=== PATIENT | female | born 1950 | race Caucasian/White ===

== ENCOUNTER 2018-06-12 17:11 | Inpatient (IN) ==
[2018-06-12] MEDS ORDERED: 0.9 % Sodium Chloride 1,000 ML IVC ONE (17:33)
--- NOTE | 2018-06-12 18:02 | Emergency Department Note ---
Disposition Clinical Impression: Syncope and collapse, Abdominal pain, Constipation Disposition: Still a Patient Condition: Fair Instructions: Constipation (ED) Referrals: Leonel Esparza MD [Primary Care Provider] - Forms: ED Satisfaction Letter, Work/School Release Time of Disposition: 19:11 Abdominal Pain HPI - General Chief Complaint: ED Abdominal Pain Stated Complaint: abd pain,syncopal episodes Time Seen by Provider: 06/12/18 17:13 Source: patient Limitations: no limitations Nursing Notes Reviewed: Yes Vital Signs Reviewed: Yes - History of Present Illness HPI Narrative: Gladis is a 67 year old female with a PMH significant for HTN, DL, diverticular disease who presents with 5 days of constipation with associated falls. History comes primarily from the patient. Gladis states she had a very large, blood streaked bowel movement Wednesday evening, and has not had a bowel movement since then. In the interval period she has attempted to treat with mirilax and liberal po hydration with no effect. She had several paroxysmal episodes of subjective fever and associated chills/night sweats, and she developed progressively worsening abdominal cramping after 24 hours without a bowel movement. On Wednesday, stood up and attempted to ambulate to the restroom, but fell to the ground and struck her head against the ground, briefly losing consciousness. This happened twice more that same evening, though she is unsure if she lost consciousness all three times. Through this her constipation persisted, and when it did not resolve on Wednesday she presented to [facility] for further evaluation and treatment. She admits to subjective fever and chills, but denies N/V, CP/SOB. Of note she was assessed in April of this year at this same location for a fall, and work up at that time was negative for intracranial process or inciting etiology. Pt Subjective Complaint: abdominal pain Consistency: constant Location: diffuse Pain Scale: 10 Quality: cramping Improves with: nothing Worsens with: nothing (d) Associated symptoms: Reports: constipation Treatments prior to arrival: OTC medications (Miralax) - Related Data Home Medications Medication Instructions Recorded Confirmed Aspirin Enteric Coated [Aspirin EC] 2 tab PO DAILY 04/29/15 04/20/16 Ezetimibe [Zetia] 10 mg PO DAILY 04/29/15 04/20/16 Omeprazole [PriLOSEC] 20 mg PO BIDAC 04/29/15 04/20/16 Venlafaxine XR (24 HR) [Effexor XR] 150 mg PO BID 04/29/15 04/20/16 diazePAM [Valium] 5 mg PO BID 10/29/15 04/20/16 Albuterol Sulfate [Albuterol 2 puff IH Q4H PRN 04/20/16 04/20/16 Inhaler] Atorvastatin Calcium [Lipitor] 20 mg PO DAILY 04/20/16 04/20/16 Cetirizine HCl [Zyrtec] 10 mg PO DAILY 04/20/16 04/20/16 Ergocalciferol (VITAMIN D2) 50,000 unit PO QWEEK 04/20/16 04/20/16 [Vitamin D2 (50,000 UNIT)] Ferrous Gluconate 324 mg PO BID 04/20/16 04/20/16 Montelukast [Singulair] 10 mg PO DAILY 04/20/16 04/20/16 Ranitidine HCl [Heartburn Relief] 150 mg PO BID 04/20/16 04/20/16 Previous Rx's Medication Instructions Recorded Ciprofloxacin [Cipro] 500 mg PO BID #8 tablet 04/24/16 metroNIDAZOLE [Flagyl] 500 mg PO TID #12 tablet 04/24/16 Allergies Allergy/AdvReac Type Severity Reaction Status Date / Time Penicillins Allergy Unknown Hives Verified 04/20/17 20:33 Constitutional: Reports: fever, chills, weakness ENT ED: Reports: as per HPI. Denies: congestion, dysphagia Cardiovascular: Denies: chest pain, palpitations Respiratory: Reports: as per HPI. Denies: cough, dyspnea, wheezes, sputum production Gastrointestinal: Reports: abdominal pain, constipation. Denies: nausea, vomit ing Genitourinary: Denies: urgency, dysuria, frequency Musculoskeletal: Reports: arthralgia (chronic arthritic change and carpal tunnel at baseline) Integumentary: Denies: abrasion Neurological: Reports: weakness Psychiatric: Denies: anxiety, depression Endocrine: Reports: fatigue Abdominal Pain PMH - Past Medical History Medical history: Reports: hyperlipidemia, hypertension, other Female Surgical History: Reports: hysterectomy TUBE ROLLER history: Reports: no TUBE ROLLER history Psychiatric history: Reports: no psych history - Social History Smoking status: Current every day smoker Alcohol use: Reports: none Drug use: Reports: none Physical Exam - General Limitations: no limitations General appearance: alert, in no apparent distress - Head Head exam: atraumatic, normocephalic, normal inspection - Eye Eye exam: Present: normal appearance, PERRL, EOMI - ENT ENT exam: mucous membranes dry - Neck Neck exam: Present: normal inspection, full ROM, trachea midline - Chest Chest inspection: Present: normal inspection, symmetric chest wall rise - Respiratory Respiratory exam: Present: normal lung sounds bilaterally. Absent: respiratory distress, wheezes, accessory muscle use - Cardiovascular Cardiovascular exam: Present: irregular rhythm (Patient is in an irregular coupled sinus rhythm on EKG, with two separate fixed but alternating R-R intervals), normal heart sounds. Absent: systolic murmur, rubs, gallop - Abdominal Exam Abdominal exam: Present: soft, tenderness, diminished bowel sounds. Absent: rebound, rigidity - Rectal Exam Reception Agent present during exam: Yes (Claudia) Rectal exam: Present: normal rectal tone. Absent: bloody stool, fecal impaction, hemorrhoids, mass - Extremities Exam Extremities exam: Present: normal inspection - Expanded Lower Extremity Exam Foot/toe exam: Present: normal inspection Neurovascular/Tendon exam: Present: normal capillary refill - Neurological Exam Neurological exam: Present: alert, oriented X3, CN II-XII intact - Psychiatric Psychiatric exam: Present: normal affect, normal mood - Skin Skin exam: Present: warm, dry, intact, normal color Course Course Narrative: Initial concerns include: Intracranial pathology 2/2 recent fall and head trauma. arrhythmia induced syncope 2/2 new onset regularly irregular rhythm Diverticulitis with associated constipation Hgb decrease from 12.4-11 since last eval Will obtain initial laboratory studies including CBC/CMP/Troponin Will obtain CT of head and abdomen Hemoccult performed and sent to lab Vital Signs Temperature 98.5 F 06/12/18 17:16 Pulse Rate 98 06/12/18 17:16 Respiratory Rate 15 06/12/18 17:16 Blood Pressure 121/75 06/12/18 17:16 O2 Sat by Pulse Oximetry 96 06/12/18 17:16 Temperature 98.5 F 06/12/18 17:25 Pulse Rate 98 06/12/18 17:25 Respiratory Rate 15 06/12/18 17:25 Blood Pressure 121/75 06/12/18 17:25 O2 Sat by Pulse Oximetry 96 06/12/18 17:25 Oxygen Delivery Oxygen Delivery Room Air Abdominal Pain - Lab Data Result diagrams: 06/12/18 17:33 06/12/18 17:33 Lab Results 06/12/18 06/12/18 06/12/18 Range/Units 17:33 17:33 17:33 WBC 8.6 (4.3-11.1) K/mcL RBC 3.86 (3.82-4.97) M/mcL Hgb 11.0 L (11.5-15.4) g/dL Hct 33.6 L (35.3-44.9) % MCV 87.0 (83.0-100.0) fL MCH 28.5 (28.0-33.3) pg MCHC 32.7 (31.6-35.5) g/dL RDW 15.2 H (11.5-14.5) % Plt Count 285 (140-400) K/mcL MPV 8.6 L (9.4-12.4) fL Immature Gran % 0.3 (0-4) % Seg Neutrophils % 75.1 % Lymphocytes % 18.1 % Monocytes % 6.2 % Eosinophils % 0.1 % Basophils % 0.2 % Neutrophils # 6.5 (1.6-8.9) K/mcL Lymphocytes # 1.6 (0.6-4.6) K/mcL Monocytes # 0.5 (0.0-1.3) K/mcL Eosinophils # 0.0 (0.0-0.6) K/mcL Basophils # 0.0 (0.0-0.2) K/mcL PT 11.3 (9.4-12.1) Seconds INR 1.0 APTT 25.8 L (26.0-36.0) Seconds Sodium 135 L (136-145) mEq/L Potassium 3.9 (3.5-5.1) mEq/L Chloride 103 (98-107) mEq/L Carbon Dioxide 24 (23-29) mEq/L BUN 11 (8-23) mg/dL Creatinine 0.80 (0.60-1.20) mg/dL Est GFR ( Amer) > 60 (> 60) Est GFR (Non-Af Amer) > 60 (> 60) BUN/Creatinine Ratio 14 (6-26) Glucose 92 (70-105) mg/dL Calculated Osmolality 279 L (280-300) Calcium 9.5 (8.6-10.3) mg/dL Total Bilirubin 0.3 (0.3-1.0) mg/dL Direct Bilirubin 0.0 (0.0-0.2) mg/dL Indirect Bilirubin 0.3 (0.0-1.2) mg/dL AST 14 (13-39) Units/L ALT 11 (7-52) Units/L Alkaline Phosphatase 66 (34-104) Units/L Troponin I < 0.03 (< 0.04) ng/mL Serum Total Protein 7.3 (6.4-8.9) g/dL Albumin 3.9 (3.5-5.7) g/dL Globulin 3.4 (2.4-3.5) g/dL Albumin/Globulin Ratio 1.1 (1.1-2.2) Lipase 9 L (11-82) Units/L Stool Occult Bld Scrn (Negative) 06/12/18 Range/Units 18:19 WBC (4.3-11.1) K/mcL RBC (3.82-4.97) M/mcL Hgb (11.5-15.4) g/dL Hct (35.3-44.9) % MCV (83.0-100.0) fL MCH (28.0-33.3) pg MCHC (31.6-35.5) g/dL RDW (11.5-14.5) % Plt Count (140-400) K/mcL MPV (9.4-12.4) fL Immature Gran % (0-4) % Seg Neutrophils % % Lymphocytes % % Monocytes % % Eosinophils % % Basophils % % Neutrophils # (1.6-8.9) K/mcL Lymphocytes # (0.6-4.6) K/mcL Monocytes # (0.0-1.3) K/mcL Eosinophils # (0.0-0.6) K/mcL Basophils # (0.0-0.2) K/mcL PT (9.4-12.1) Seconds INR APTT (26.0-36.0) Seconds Sodium (136-145) mEq/L Potassium (3.5-5.1) mEq/L Chloride (98-107) mEq/L Carbon Dioxide (23-29) mEq/L BUN (8-23) mg/dL Creatinine (0.60-1.20) mg/dL Est GFR ( Amer) (> 60) Est GFR (Non-Af Amer) (> 60) BUN/Creatinine Ratio (6-26) Glucose (70-105) mg/dL Calculated Osmolality (280-300) Calcium (8.6-10.3) mg/dL Total Bilirubin (0.3-1.0) mg/dL Direct Bilirubin (0.0-0.2) mg/dL Indirect Bilirubin (0.0-1.2) mg/dL AST (13-39) Units/L ALT (7-52) Units/L Alkaline Phosphatase (34-104) Units/L Troponin I (< 0.04) ng/mL Serum Total Protein (6.4-8.9) g/dL Albumin (3.5-5.7) g/dL Globulin (2.4-3.5) g/dL Albumin/Globulin Ratio (1.1-2.2) Lipase (11-82) Units/L Stool Occult Bld Scrn Negative (Negative) S.B.A.R. - S.B.A.R. Transition of Care: Change of Shift Situation: Demographics, MOA Background: Presenting Complaint, Relevant PMH, Meds, & Allergies Assessment: Vital Signs, Course and respsone to treatment, Exam Concerns, Pertinant Lab Results, Outstanding Labs Recommendation: Barrier(s) to disposition, Recommendation based on pending s tudies, treatments, or consults S.B.A.R. Report Given to: Can Alvarado D.O. S.B.A.R. Repor Time: 19:00 Attestation Statement - Attestation Attestation: I, Cristopher Olson DO, examined this patient [id number] and my medical decision-making was reviewed with Davi Guerin PGY-1( rotating internal salesperson), Resident Physician. I agree with the documented findings, disposition and tr eatment plan as described except to the extent set forth below. Please see my progress notes for details.
[2018-06-12 18:04] LABS: Basophils % 0.2 %; Eosinophils % 0.1 %; Hematocrit 33.6 % (35.3-44.9); Immature Granulocytes % 0.3 % (0-4); Lymphocytes # 1.6 K/mcL (0.6-4.6); Lymphocytes % 18.1 %; Mean Corpuscular HGB Conc 32.7 g/dL (31.6-35.5); Mean Corpuscular Hemoglobin 28.5 pg (28.0-33.3); Mean Platelet Volume 8.6 fL (9.4-12.4); Monocytes # 0.5 K/mcL (0.0-1.3); Monocytes % 6.2 %; Neutrophils # 6.5 K/mcL (1.6-8.9); Platelet Count 285 K/mcL (140-400); Red Blood Count 3.86 M/mcL (3.82-4.97); Red Cell Distribution Width 15.2 % (11.5-14.5); Segmented Neutrophils % 75.1 %
[2018-06-12 18:11] LABS: Prothrombin Time 11.3 Seconds (9.4-12.1)
[2018-06-12 18:15] LABS: Activated Partial Thrombo Time 25.8 Seconds (26.0-36.0)
--- NOTE | 2018-06-12 18:18 | Emergency Department Note ---
Disposition Clinical Impression: Syncope and collapse, Abdominal pain Disposition: Still a Patient Condition: Fair Referrals: Leonel Esparza MD [Primary Care Provider] - Forms: ED Satisfaction Letter, Work/School Release Time of Disposition: 18:28 General Adult HPI - General Chief complaint: ED Abdominal Pain Stated complaint: abd pain,syncopal episodes Time Seen by Provider: 06/12/18 17:13 Source: patient Limitations: no limitations - History of Present Illness Pain Scale: 10 - Related Data Home Medications Medication Instructions Recorded Confirmed Aspirin Enteric Coated [Aspirin EC] 2 tab PO DAILY 04/29/15 04/20/16 Ezetimibe [Zetia] 10 mg PO DAILY 04/29/15 04/20/16 Omeprazole [PriLOSEC] 20 mg PO BIDAC 04/29/15 04/20/16 Venlafaxine XR (24 HR) [Effexor XR] 150 mg PO BID 04/29/15 04/20/16 diazePAM [Valium] 5 mg PO BID 10/29/15 04/20/16 Albuterol Sulfate [Albuterol 2 puff IH Q4H PRN 04/20/16 04/20/16 Inhaler] Atorvastatin Calcium [Lipitor] 20 mg PO DAILY 04/20/16 04/20/16 Cetirizine HCl [Zyrtec] 10 mg PO DAILY 04/20/16 04/20/16 Ergocalciferol (VITAMIN D2) 50,000 unit PO QWEEK 04/20/16 04/20/16 [Vitamin D2 (50,000 UNIT)] Ferrous Gluconate 324 mg PO BID 04/20/16 04/20/16 Montelukast [Singulair] 10 mg PO DAILY 04/20/16 04/20/16 Ranitidine HCl [Heartburn Relief] 150 mg PO BID 04/20/16 04/20/16 Previous Rx's Medication Instructions Recorded Ciprofloxacin [Cipro] 500 mg PO BID #8 tablet 04/24/16 metroNIDAZOLE [Flagyl] 500 mg PO TID #12 tablet 04/24/16 Allergies Allergy/AdvReac Type Severity Reaction Status Date / Time Penicillins Allergy Unknown Hives Verified 04/20/17 20:33 Constitutional: Reports: fever, chills, weakness ENT ED: Reports: as per HPI. Denies: congestion, dysphagia Cardiovascular: Denies: chest pain, palpitations Respiratory: Reports: as per HPI. Denies: cough, dyspnea, wheezes, sputum production Gastrointestinal: Reports: abdominal pain, constipation. Denies: nausea, vomiting Genitourinary: Denies: urgency, dysuria, frequency Musculoskeletal: Reports: arthralgia (chronic arthritic change and carpal tunnel at baseline) Integumentary: Denies: abrasion Past Medical History - Past Medical History Medical history: Reports: hyperlipidemia, hypertension, other Surgical history: Reports: hysterectomy Psychiatric history: Reports: no psych history CHIP TESTER history: Reports: no CHIP TESTER history - Social History Smoking Status: Current every day smoker Smokeless Tobacco Status: No Alcohol use: Reports: none Drug use: Reports: none Physical Exam - General Limitations: no limitations General appearance: alert, in no apparent distress Course Vital Signs Temperature 98.5 F 06/12/18 17:16 Pulse Rate 98 06/12/18 17:16 Respiratory Rate 15 06/12/18 17:16 Blood Pressure 121/75 06/12/18 17:16 O2 Sat by Pulse Oximetry 96 06/12/18 17:16 Temperature 98.5 F 06/12/18 17:25 Pulse Rate 98 06/12/18 17:25 Respiratory Rate 15 06/12/18 17:25 Blood Pressure 121/75 06/12/18 17:25 O2 Sat by Pulse Oximetry 96 06/12/18 17:25 Oxygen Delivery Oxygen Delivery Room Air Medical Decision Making - Lab Data Result diagrams: 06/12/18 17:33 Lab Results 06/12/18 06/12/18 Range/Units 17:33 17:33 WBC 8.6 (4.3-11.1) K/mcL RBC 3.86 (3.82-4.97) M/mcL Hgb 11.0 L (11.5-15.4) g/dL Hct 33.6 L (35.3-44.9) % MCV 87.0 (83.0-100.0) fL MCH 28.5 (28.0-33.3) pg MCHC 32.7 (31.6-35.5) g/dL RDW 15.2 H (11.5-14.5) % Plt Count 285 (140-400) K/mcL MPV 8.6 L (9.4-12.4) fL Immature Gran % 0.3 (0-4) % Seg Neutrophils % 75.1 % Lymphocytes % 18.1 % Monocytes % 6.2 % Eosinophils % 0.1 % Basophils % 0.2 % Neutrophils # 6.5 (1.6-8.9) K/mcL Lymphocytes # 1.6 (0.6-4.6) K/mcL Monocytes # 0.5 (0.0-1.3) K/mcL Eosinophils # 0.0 (0.0-0.6) K/mcL Basophils # 0.0 (0.0-0.2) K/mcL PT 11.3 (9.4-12.1) Seconds INR 1.0 APTT 25.8 L (26.0-36.0) Seconds Attestation Statement - Attestation Attestation: I, Cristopher Olson DO, examined this patient [id number] and my medical decision-making was reviewed with Davi Guerin PGY-1( rotating kinesiology internship), Resident Physician. I agree with the documented findings, disposition and olga atment plan as described except to the extent set forth below. Please see my progress notes for details. 67-year-old female presents to the emergency room with several complaints. She describes 3 falls yesterday of unknown etiology. One of her falls and with a syncopal event that she does not recall. She did hit her head at that time and her face. She denies any active chest pain, shortness of breath. Denies any nausea vomiting or diarrhea. Denies any fevers or chills. Patient has a h istory of diverticular disease. She has been constipated for approximately for 5 days. When she did fall yesterday she did have a large bowel movement and that is been the only bowel movements she has had not timeframe. Vital signs on initial presentation are stable. Patient is alert she is oriented she speaks in full sentences. She has no visible signs of facial asymmetry or neurologic deficits. Patient did ambulate into the emergency department under her own power. Head is atraumatic. Pupils are equal round reactive. Extraocular muscles are intact. Oral mucosa is patent. Lungs are clear. Heart is regular. Abdomen is soft nontender nondistended with no guarding no rigidity and no peritoneal symptoms at this time. Patient denies any vaginal discharge or burning with urination. No signs of skin rashes lesions or trauma at this point. EKG was collected in the triage process and does show a sinus arrhythmia. She has 2 beats the couple together and a normal distribution co nsistent with either a bigeminy are coupled atrial rhythm. Patient's ventricular rate is in the 80s. Patient will have detailed workup completed here today for syncope. CT imaging of the head and cervical spine along with CT imaging of the abdomen will be ordered and resulted at this point. CBC chemistry liver function testing and lipase along with urinalysis and troponin will be collected as well. Patient will most likely require admission secondary to the syncopal event that was unprovoked. See detailed documentation of the physical exam, medical intervention, medical decision-making and disposition in the resident physician's note. No critical care applied to the patient's treatment course at this time. 1900 Patient's workup is still pending at this time. Detailed sign out will be completed to the overnight providers Dr. Alvarado. No other issues at this point. Recommendation for consultation with Dr. Prakash Padron will be given as well. Patient may require admission for syncopal event. Patient is otherwise clinically stable.
[2018-06-12 18:26] LABS: BUN/Creatinine Ratio 14 (6-26); Blood Urea Nitrogen 11 mg/dL (8-23); Calcium 9.5 mg/dL (8.6-10.3); Carbon Dioxide 24 mEq/L (23-29); Chloride 103 mEq/L (98-107); Glucose 92 mg/dL (70-105); Osmolality,Calculated 279 (280-300); Potassium 3.9 mEq/L (3.5-5.1); Sodium 135 mEq/L (136-145); Troponin I < 0.03 ng/mL (< 0.04); eGFR For Non-African Americans > 60 (> 60)
[2018-06-12 18:36] LABS: Alanine Aminotransferase 11 Units/L (7-52); Albumin 3.9 g/dL (3.5-5.7); Albumin/Globulin Ratio 1.1 (1.1-2.2); Alkaline Phosphatase 66 Units/L (34-104); Aspartate Amino Transferase 14 Units/L (13-39); Bilirubin,Indirect 0.3 mg/dL (0.0-1.2); Bilirubin,Total 0.3 mg/dL (0.3-1.0); Globulin 3.4 g/dL (2.4-3.5); Lipase 9 Units/L (11-82); Total Protein 7.3 g/dL (6.4-8.9)
[2018-06-12 18:57] LABS: Bilirubin,Urine Negative (Negative); Blood,Urine Small (Negative); Clarity,Urine Clear (Clear); Color,Urine Yellow (Yellow); Glucose,Urine (UA) Normal (Normal); Ketones,Urine Negative (Negative); Leukocyte Esterase,Urine Negative (Negative); Nitrite,Urine Negative (Negative); PH,Urine 6.5 pH Units (5.0-8.0); Protein,Urine Negative (Neg-Trace); Specific Gravity,Urine 1.009 (1.010-1.025); Urobilinogen,Urine Normal (Normal)
[2018-06-12 18:59] LABS: Bacteria,Urine None Seen per hpf (None-Few); Hyaline Casts,Urine None Seen per lpf (None-Few); Squamous Epithelial Cell,Urine Moderate per lpf (None-Few); WBC,Urine 0-3 per hpf (0-3)
--- NOTE | 2018-06-12 19:32 | Emergency Department Note ---
Addendum entered and electronically signed by Job Ellis DO 06/12/18 21:03: Dr. Hernandez spoke with patient, has requested that surgical consult be cancelled at this time. Original Note: Disposition Clinical Impression: Syncope and collapse, Abnormal EKG, Diverticulitis Abdominal pain Qualifiers: Abdominal location: unspecified location Qualified Code(s): R10.9 - Unspecified abdominal pain Constipation Qualifiers: Constipation type: unspecified constipation type Qualified Code(s): K59.00 - Constipation, unspecified Disposition: Admitted As Inpatient Condition: Good Time of Disposition: 20:08 Abdominal Pain HPI - General Chief Complaint: ED Abdominal Pain Stated Complaint: abd pain,syncopal episodes Time Seen by Provider: 06/12/18 17:13 Source: patient Mode of arrival: ambulatory Limitations: no limitations Nursing Notes Reviewed: Yes Vital Signs Reviewed: Yes - History of Present Illness Pt Subjective Complaint: abdominal pain Location: diffuse Pain Scale: 10 Quality: cramping Improves with: nothing Worsens with: nothing (d) Associated symptoms: Reports: constipation - Related Data Home Medications Medication Instructions Recorded Confirmed RX: Aspirin Enteric Coated 2 tab PO DAILY 04/29/15 04/20/16 [Aspirin EC] RX: Ezetimibe [Zetia] 10 mg PO DAILY 04/29/15 04/20/16 RX: Omeprazole [PriLOSEC] 20 mg PO BIDAC 04/29/15 04/20/16 RX: Venlafaxine XR (24 HR) 150 mg PO BID 04/29/15 04/20/16 [Effexor XR] RX: diazePAM [Valium] 5 mg PO BID 10/29/15 04/20/16 RX: Albuterol Sulfate [Albuterol 2 puff IH Q4H PRN 04/20/16 04/20/16 Inhaler] RX: Atorvastatin Calcium [Lipitor] 20 mg PO DAILY 04/20/16 04/20/16 RX: Cetirizine HCl [Zyrtec] 10 mg PO DAILY 04/20/16 04/20/16 RX: Ergocalciferol (VITAMIN D2) 50,000 unit PO QWEEK 04/20/16 04/20/16 [Vitamin D2 (50,000 UNIT)] RX: Ferrous Gluconate 324 mg PO BID 04/20/16 04/20/16 RX: Montelukast [Singulair] 10 mg PO DAILY 04/20/16 04/20/16 RX: Ranitidine HCl [Heartburn 150 mg PO BID 04/20/16 04/20/16 Relief] Previous Rx's Medication Instructions Recorded RX: Ciprofloxacin [Cipro] 500 mg PO BID #8 tablet 04/24/16 RX: metroNIDAZOLE [Flagyl] 500 mg PO TID #12 tablet 04/24/16 Allergies Allergy/AdvReac Type Severity Reaction Status Date / Time Penicillins Allergy Unknown Hives Verified 04/20/17 20:33 Constitutional: Reports: fever, chills, weakness ENT ED: Reports: as per HPI. Denies: congestion, dysphagia Cardiovascular: Denies: chest pain, palpitations Respiratory: Reports: as per HPI. Denies: cough, dyspnea, wheezes, sputum pr oduction Gastrointestinal: Reports: abdominal pain, constipation. Denies: nausea, vomiting Genitourinary: Denies: urgency, dysuria, frequency Musculoskeletal: Reports: arthralgia (chronic arthritic change and carpal tunnel at baseline) Integumentary: Denies: abrasion Neurological: Reports: weakness Psychiatric: Denies: anxiety, depression Endocrine: Reports: fatigue Abdominal Pain PMH - Past Medical History Medical history: Reports: hyperlipidemia, hypertension, other Female Surgical History: Reports: hysterectomy UPPER SHAPER history: Reports: no UPPER SHAPER history Psychiatric history: Reports: no psych history - Social History Smoking status: Current every day smoker Alcohol use: Reports: none Drug use: Reports: none Physical Exam - General Limitations: no limitations General appearance: alert, in no apparent distress - Head Head exam: atraumatic, normocephalic, normal inspection - Eye Eye exam: Present: normal appearance, PERRL, EOMI - ENT ENT exam: normal exam, normal oropharynx, mucous membranes moist - Neck Neck exam: Present: normal inspection, full ROM, trachea midline - Chest Chest inspection: Present: normal inspection, symmetric chest wall rise - Respiratory Respiratory exam: Present: normal lung sounds bilaterally - Cardiovascular Cardiovascular exam: Present: regular rate, normal rhythm, normal heart sounds - Abdominal Exam Abdominal exam: Present: soft, Non-Tender. Absent: tenderness, distention, guarding, rebound, rigidity - Extremities Exam Extremities exam: Present: normal inspection, full ROM. Absent: tenderness, ped al edema - Neurological Exam Neurological exam: Present: alert, oriented X3 - Psychiatric Psychiatric exam: Present: normal affect, normal mood - Skin Skin exam: Present: warm, dry, intact, normal color Course Course Narrative: Patient was a sign out from day team, Dr. Olson and Dr. Blake. Please see their notes for any additional details. In summary, patient is a 67-year-old female that presented to the ER with several complaints. She has had multiple falls, a couple syncopal events. Most recent fall was yesterday. Patient states that she had some point had a syncopal event that she cannot recall and hit her head and face. Denies any chest pain, shortness of breath, nausea, vomiting, fevers. She does admit to abdominal pain and constipation and says that she has not had a bowel movement for the past 5 days. EKG was performed by previous team and shows a regular rhythm, possibly bigeminy versus ectopic beat. Rate is in the 80s. Otherwise, no acute ST elevation or depression. CT of the head, neck, abdomen and pelvis are currently pending. Troponin negative. Mild anemia. No major electrolyte abnormality. Urine negative for UTI. 19:49 CT head and cervical spine negative for any acute abnormality. Chest x- ray negative for any acute abnormality. CT abdomen pelvis shows acute uncomplicated sigmoid colon diverticulitis. We will start the patient on Cipro and Flagyl. We will consult cardio due to concerning irregular EKG. We will plan on admission for further syncopal workup and diverticulitis at this time. 20:08 I spoke with cardiology. They reviewed EKG. Currently concern for sinus arrhythmia versus sinus exit block. They have agreed to be consult for the patient once she is admitted and plan to order an echo after admission. Consult to surgery was also placed for uncomplicated diverticulitis. We will proceed with admission. Patient happy and agreeable with this plan. Chest X-Ray 06/12/18 17:33 IMPRESSION: No acute findings in the chest. D/ / Nava Boyle MD / Nava Boyle MD Interpreting Provider: Nava Boyle MD Abdomen/Pelvis CT 06/12/18 17:57 IMPRESSION: 1. Acute uncomplicated sigmoid colon diverticulitis. 2. No acute posttraumatic abnormality in the abdomen or pelvis. 3. Status post hysterectomy. D/ / Stu Edmond MD / Stu Edmond MD Interpreting Provider: Stu Edmond MD Cervical Spine CT 06/12/18 17:57 IMPRESSION: No acute abnormality of the cervical spine. D/ / Stu Edmond MD / Stu Edmond MD Interpreting Provider: Stu Edmond MD Head CT 06/12/18 17:57 IMPRESSION: No acute intracranial abnormality. D/ / Stu Edmond MD / Stu Edmond MD Interpreting Provider: Stu Edmond MD Chest X-Ray 06/12/18 17:33 IMPRESSION: No acute findings in the chest. D/ / Nava Boyle MD / Nava Boyle MD Interpreting Provider: Nava Boyle MD Cervical Spine CT 06/12/18 17:57 IMPRESSION: No acute abnormality of the cervical spine. D/ / Stu Edmond MD / Stu Edmond MD Interpreting Provider: Stu Edmond MD Vital Signs Temperature 98.5 F 06/12/18 17:16 Pulse Rate 98 06/12/18 17:16 Respiratory Rate 15 06/12/18 17:16 Blood Pressure 121/75 06/12/18 17:16 O2 Sat by Pulse Oximetry 96 06/12/18 17:16 Temperature 98.5 F 06/12/18 17:25 Pulse Rate 81 06/12/18 20:05 Respiratory Rate 16 06/12/18 20:05 Blood Pressure 126/94 06/12/18 20:05 O2 Sat by Pulse Oximetry 100 06/12/18 20:05 Oxygen Delivery Oxygen Delivery Room Air Abdominal Pain - MDM Narrative Medical decision making narrative: Patient was a sign out from day team, Dr. Olson and Dr. Blaek. Please see their notes for any additional details. In summary, patient is a 67-year-old female that presented to the ER with several complaints. She has had multiple falls, a couple syncopal events. Most recent fall was yesterday. Patient states that she had some point had a syncopal event that she cannot recall and hit her head and face. Denies any chest pain, shortness of breath, nausea, vomiting, fevers. She does admit to abdominal pain and constipation and says that she has not had a bowel movement for the past 5 days. EKG was performed by previous team and shows a regular rhythm, possibly bigeminy versus ectopic beat. Rate is in the 80s. Otherwise, no acute ST elevation or depression. CT of the head, neck, abdomen and pelvis are currently pending. Troponin negative. Mild anemia. No major electrolyte abnormality. Urine negative for UTI. 19:49 CT head and cervical spine negative for any acute abnormality. Chest x- ray negative for any acute abnormality. CT abdomen pelvis shows acute uncomplicated sigmoid colon diverticulitis. We will start the patient on Cipro and Flagyl. We will consult cardio due to concerning irregular EKG. We will plan on admission for further syncopal workup and diverticulitis at this time. 20:08 I spoke with cardiology. They reviewed EKG. Currently concern for sinus arrhythmia versus sinus exit block. They have agreed to be consult for the patient once she is admitted and plan to order an echo after admission. Consult to surgery was also placed for uncomplicated diverticulitis. We will proceed with admission. Patient happy and agreeable with this plan. - Medical Records Medical records reviewed: Yes I reviewed the patient's medical records. - Lab Data Lab results reviewed: Yes I reviewed the patient's lab results. Result diagrams: 06/12/18 17:33 06/12/18 17:33 Lab Results 06/12/18 06/12/18 06/12/18 Range/Units 17:33 17:33 17:33 WBC 8.6 (4.3-11.1) K/mcL RBC 3.86 (3.82-4.97) M/mcL Hgb 11.0 L (11.5-15.4) g/dL Hct 33.6 L (35.3-44.9) % MCV 87.0 (83.0-100.0) fL MCH 28.5 (28.0-33.3) pg MCHC 32.7 (31.6-35.5) g/dL RDW 15.2 H (11.5-14.5) % Plt Count 285 (140-400) K/mcL MPV 8.6 L (9.4-12.4) fL Immature Gran % 0.3 (0-4) % Seg Neutrophils % 75.1 % Lymphocytes % 18.1 % Monocytes % 6.2 % Eosinophils % 0.1 % Basophils % 0.2 % Neutrophils # 6.5 (1.6-8.9) K/mcL Lymphocytes # 1.6 (0.6-4.6) K/mcL Monocytes # 0.5 (0.0-1.3) K/mcL Eosinophils # 0.0 (0.0-0.6) K/mcL Basophils # 0.0 (0.0-0.2) K/mcL PT 11.3 (9.4-12.1) Seconds INR 1.0 APTT 25.8 L (26.0-36.0) Seconds Sodium 135 L (136-145) mEq/L Potassium 3.9 (3.5-5.1) mEq/L Chloride 103 (98-107) mEq/L Carbon Dioxide 24 (23-29) mEq/L BUN 11 (8-23) mg/dL Creatinine 0.80 (0.60-1.20) mg/dL Est GFR ( Amer) > 60 (> 60) Est GFR (Non-Af Amer) > 60 (> 60) BUN/Creatinine Ratio 14 (6-26) Glucose 92 (70-105) mg/dL POC Glucose (70-99) mg/dL Calculated Osmolality 279 L (280-300) Calcium 9.5 (8.6-10.3) mg/dL Total Bilirubin 0.3 (0.3-1.0) mg/dL Direct Bilirubin 0.0 (0.0-0.2) mg/dL Indirect Bilirubin 0.3 (0.0-1.2) mg/dL AST 14 (13-39) Units/L ALT 11 (7-52) Units/L Alkaline Phosphatase 66 (34-104) Units/L Troponin I < 0.03 (< 0.04) ng/mL Serum Total Protein 7.3 (6.4-8.9) g/dL Albumin 3.9 (3.5-5.7) g/dL Globulin 3.4 (2.4-3.5) g/dL Albumin/Globulin Ratio 1.1 (1.1-2.2) Lipase 9 L (11-82) Units/L Urine Color (Yellow) Urine Clarity (Clear) Urine pH (5.0-8.0) pH Units Ur Specific [place] (1.010-1.025) Urine Protein (Neg-Trace) mg/dL Urine Glucose (UA) (Normal) mg/dL Urine Ketones (Negative) mg/dL Urine Blood (Negative) Urine Nitrite (Negative) Urine Bilirubin (Negative) Urine Urobilinogen (Normal) mg/dL Ur Leukocyte Esterase (Negative) Urine Microscopic RBC (0-3) per hpf Urine Microscopic WBC (0-3) per hpf Ur Squamous Epith Cells (None-Few) per lpf Urine Bacteria (None-Few) per hpf Hyaline Casts (None-Few) per lpf Ur Culture Indicated? (NO) Stool Occult Bld Scrn (Negative) 06/12/18 06/12/18 06/12/18 Range/Units 17:43 18:19 18:43 WBC (4.3-11.1) K/mcL RBC (3.82-4.97) M/mcL Hgb (11.5-15.4) g/dL Hct (35.3-44.9) % MCV (83.0-100.0) fL MCH (28.0-33.3) pg MCHC (31.6-35.5) g/dL RDW (11.5-14.5) % Plt Count (140-400) K/mcL MPV (9.4-12.4) fL Immature Gran % (0-4) % Seg Neutrophils % % Lymphocytes % % Monocytes % % Eosinophils % % Basophils % % Neutrophils # (1.6-8.9) K/mcL Lymphocytes # (0.6-4.6) K/mcL Monocytes # (0.0-1.3) K/mcL Eosinophils # (0.0-0.6) K/mcL Basophils # (0.0-0.2) K/mcL PT (9.4-12.1) Seconds INR APTT (26.0-36.0) Seconds Sodium (136-145) mEq/L Potassium (3.5-5.1) mEq/L Chloride (98-107) mEq/L Carbon Dioxide (23-29) mEq/L BUN (8-23) mg/dL Creatinine (0.60-1.20) mg/dL Est GFR ( Amer) (> 60) Est GFR (Non-Af Amer) (> 60) BUN/Creatinine Ratio (6-26) Glucose (70-105) mg/dL POC Glucose 99 (70-99) mg/dL Calculated Osmolality (280-300) Calcium (8.6-10.3) mg/dL Total Bilirubin (0.3-1.0) mg/dL Direct Bilirubin (0.0-0.2) mg/dL Indirect Bilirubin (0.0-1.2) mg/dL AST (13-39) Units/L ALT (7-52) Units/L Alkaline Phosphatase (34-104) Units/L Troponin I (< 0.04) ng/mL Serum Total Protein (6.4-8.9) g/dL Albumin (3.5-5.7) g/dL Globulin (2.4-3.5) g/dL Albumin/Globulin Ratio (1.1-2.2) Lipase (11-82) Units/L Urine Color Yellow (Yellow) Urine Clarity Clear (Clear) Urine pH 6.5 (5.0-8.0) pH Units Ur Specific [place] 1.009 L (1.010-1.025) Urine Protein Negative (Neg-Trace) mg/dL Urine Glucose (UA) Normal (Normal) mg/dL Urine Ketones Negative (Negative) mg/dL Urine Blood Small H (Negative) Urine Nitrite Negative (Negative) Urine Bilirubin Negative (Negative) Urine Urobilinogen Normal (Normal) mg/dL Ur Leukocyte Esterase Negative (Negative) Urine Microscopic RBC 3-5 H (0-3) per hpf Urine Microscopic WBC 0-3 (0-3) per hpf Ur Squamous Epith Cells Moderate H (None-Few) per lpf Urine Bacteria None Seen (None-Few) per hpf Hyaline Casts None Seen (None-Few) per lpf Ur Culture Indicated? NO (NO) Stool Occult Bld Scrn Negative (Negative) - Radiology Data Radiology results reviewed: Yes I reviewed the patient's radiology results. Chest X-Ray 06/12/18 17:33 IMPRESSION: No acute findings in the chest. D/ / Nava Boyle MD / Nava Boyle MD Interpreting Provider: Nava Boyle MD Abdomen/Pelvis CT 06/12/18 17:57 IMPRESSION: 1. Acute uncomplicated sigmoid colon diverticulitis. 2. No acute posttraumatic abnormality in the abdomen or pelvis. 3. Status post hysterectomy. D/ / Stu Edmond MD / Stu Edmond MD Interpreting Provider: Stu Edmond MD Cervical Spine CT 06/12/18 17:57 IMPRESSION: No acute abnormality of the cervical spine. D/ / Stu Edmond MD / Stu Edmond MD Interpreting Provider: Stu Edmond MD Head CT 06/12/18 17:57 IMPRESSION: No acute intracranial abnormality. D/ / Stu Edmond MD / Stu Edmond MD Interpreting Provider: Stu Edmond MD - EKG Data EKG attestation: Yes I reviewed and interpreted this EKG. S.B.A.R. - S.B.A.R. Situation: Demographics, MOA Background: Presenting Complaint, Relevant PMH, Meds, & Allergies Assessment: Vital Signs, Course and respsone to treatment, Exam Concerns, Patient/Family Expectation, Pertinant Lab Results Recommendation: Barrier(s) to disposition, Recommendation based on pending studies, treatments, or consults Attestation Statement - Attestation Attestation: Resident Attestation: I examined this patient and my medical decision making was reviewed with the Resident Physician. I agree with the documented findings, disposition and treatment plan as described except to the extent set forth below . We independently had [id number] contact with the patient. Patient seen with resident physician Dr. Ellis. Please see resident note for further details and disposition. Patient taken over at sign out from Dr. Olson. Abdominal pain with history of diverticulitis. Concern for syncopal event. Abdomen with mild left lower quadrant tenderness without guarding or rebound. EKG concerning for possible atrial arrhythmia. Given the concern for syncopal event. She will undergo admission for both syncope as well as diverticulitis.
[2018-06-12] MEDS ORDERED: MetroNIDAZOLE 500 MG/100 ML 500 MG/100 ML BAG IVPB ONE (19:51)
[2018-06-12] MEDS ORDERED: *HR* HYDROcodone/Acet 5/325 mg TABLET PO PRN (20:30)
[2018-06-12] MEDS ORDERED: Naloxone 0.4 MG/ML INJ IVP PRN (20:30)
[2018-06-12] MEDS ORDERED: Acetaminophen 325 MG TABLET PO PRN (20:30)
[2018-06-12] MEDS ORDERED: Ondansetron 4 MG/2 ML VIAL IVP PRN (20:30)
--- NOTE | 2018-06-12 20:37 | Internal Med History&Physical ---
Date of Encounter: 06/12/18 Time of Encounter: 20:31 Internal Medicine - H&P: HPI Chief complaint: Abdominal pain Admitted From: Emergency Dept Plans for Post Hospital Care: Home History of present illness: Ms. Khoury is a 67 year old female history of hyperlipidemia, hypertension, previous diverticulitis, chronic back pain, tobacco abuse who presented to the ED complaining of about 5 days of constipation and a few syncopal episodes. The patient when she presented to the ED stated that she had a very large bowel movement about 5 days ago and was not able to have any bowel movements since then until yesterday when she had a couple of watery ones. She has been treating herself with MiraLAX and some oral hydration but has had no success. In the meantime she has had subjective fevers, nausea, chills, sweats. She continued to develop worsening abdominal pain the last 24 hours. While she was dealing with this the patient apparently had a couple of episodes where she fell to the ground struck her head with a brief episodes of losing consciousness. This happened yesterday multiple times. She is not sure if she lost consciousness all 3 times but she lost consciousness on one . She gets hotflashes prior to those episodes but no other symptoms such as dizziness, headache, blurry vision, chest pain, shortness of breath, urinary symptoms, or neurological symptoms. She says she has had about 6 other episodes like those over the last year and did not seek help. Due to these complaints the patient pr esented to the ED where she was hemodynamically stable. She underwent laboratory workup that showed was unremarkable lab including a troponin of less than 0.03. Lipase was 9. Normal kidney function. Hemoglobin was 7.0. She had no leukocytosis. Stool occult was negative. She had a CT head and a CT cervical spine which were unremarkable. She also had a CT abdomen and pelvis which came back showing acute uncomplicated sigmoid diverticulitis. The patient also had an EKG that came back unremarkable for what seemed like possible sinus arrhythmia versus bigeminy. Dr. Jurado from cardiology was contacted over the phone and looked over at the EKG and thought the patient possibly has sinus arr hythmia versus sinus exit block and recommended that the patient be followed by them as a consult. The meantime the patient was given IV Cipro and Flagyl. Was also given 1 L normal saline. Past Med Surg Social Fam HX - Past Medical History Medical history: hyperlipidemia, hypertension, other Additional medical history: spina bifida Psychiatric history: no psych history - Past Surgical History Surgical History: hysterectomy - Social History Smoking Status: Current every day smoker Smokeless Tobacco Status: No Alcohol use: none Drug use: none - Family History Grandmother Living Status: Hx Family Cancer: Yes Internal Medicine - H&P: Meds Aspirin Enteric Coated [Aspirin EC] 2 tab PO DAILY 04/29/15 [History] Ezetimibe [Zetia] 10 mg PO DAILY 04/29/15 [History] Omeprazole [PriLOSEC] 20 mg PO BIDAC 04/29/15 [History] Venlafaxine XR (24 HR) [Effexor XR] 150 mg PO BID 04/29/15 [History] diazePAM [Valium] 5 mg PO BID 10/29/15 [History] Albuterol Sulfate [Albuterol Inhaler] 2 puff IH Q4H PRN 04/20/16 [History] Atorvastatin Calcium [Lipitor] 20 mg PO DAILY 04/20/16 [History] Cetirizine HCl [Zyrtec] 10 mg PO DAILY 04/20/16 [History] Ergocalciferol (VITAMIN D2) [Vitamin D2 (50,000 UNIT)] 50,000 unit PO QWEEK 04/20/16 [History] Ferrous Gluconate 324 mg PO BID 04/20/16 [History] Montelukast [Singulair] 10 mg PO DAILY 04/20/16 [History] Ranitidine HCl [Heartburn Relief] 150 mg PO BID 04/20/16 [History] Ciprofloxacin [Cipro] 500 mg PO BID #8 tablet 04/24/16 [Rx] metroNIDAZOLE [Flagyl] 500 mg PO TID #12 tablet 04/24/16 [Rx] Allergy/AdvReac Type Severity Reaction Status Date / Time Penicillins Allergy Unknown Hives Verified 04/20/17 20:33 All Systems PM: A 10-system review of systems was performed and is negative for pertinent findings except as documented above in the HPI. Review of systems: All systems reviewed are negative except for as mentioned above - Constitutional Vitals: Temp Pulse Resp BP Pulse Ox 98.5 F 81 16 126/94 100 06/12/18 17:25 06/12/18 20:05 06/12/18 20:05 11/18/18 20:05 06/12/18 20:05 Exam: GEN: NAD HEENT: AT, NC, No cyanosis, oral mucosa is moist, No JVD Lymphatics: No lymphadenoapthy Eyes: Extrocular muscles intact, anicteric CVS:RRR. S1, S2, No m/r/g RESP: CTAB ABD: Left lower quadrant tenderness but no rebound, ND, +BS EXT: No edema, No rashes, 2+ DP NEURO: Nonfocal, CN II-XII intact, No focal motor or sensory deficits Psych: Cooperative, Not anxious or depressed Internal Med - H&P Results - Labs CBC & Chem 7: 06/12/18 17:33 06/12/18 17:33 Labs: Short CBC 06/12/18 Range/Units 17:33 WBC 8.6 (4.3-11.1) K/mcL Hgb 11.0 L (11.5-15.4) g/dL Hct 33.6 L (35.3-44.9) % Plt Count 285 (140-400) K/mcL Neutrophils # 6.5 (1.6-8.9) K/mcL BMP 06/12/18 17:33 Sodium 135 L Potassium 3.9 Chloride 103 Carbon Dioxide 24 BUN 11 Creatinine 0.80 Glucose 92 Calcium 9.5 Cardiac Enzymes 06/12/18 Range/Units 17:33 Troponin I < 0.03 (< 0.04) ng/mL Liver Function 06/12/18 Range/Units 17:33 Total Bilirubin 0.3 (0.3-1.0) mg/dL Direct Bilirubin 0.0 (0.0-0.2) mg/dL AST 14 (13-39) Units/L ALT 11 (7-52) Units/L Alkaline Phosphatase 66 (34-104) Units/L Albumin 3.9 (3.5-5.7) g/dL Urine 06/12/18 Range/Units 18:43 Urine Color Yellow (Yellow) Urine Clarity Clear (Clear) Urine pH 6.5 (5.0-8.0) pH Units Ur Specific [place] 1.009 L (1.010-1.025) Urine Protein Negative (Neg-Trace) mg/dL Urine Glucose (UA) Normal (Normal) mg/dL - Impressions ITS Impressions Chest X-Ray 06/12/18 17:33 IMPRESSION: No acute findings in the chest. D/ / Nava Boyle MD / Nava Boyle MD Interpreting Provider: Nava Boyle MD Abdomen/Pelvis CT 06/12/18 17:57 IMPRESSION: 1. Acute uncomplicated sigmoid colon diverticulitis. 2. No acute posttraumatic abnormality in the abdomen or pelvis. 3. Status post hysterectomy. D/ / Stu Edmond MD / Stu Edmond MD Interpreting Provider: Stu Edmond MD Cervical Spine CT 06/12/18 17:57 IMPRESSION: No acute abnormality of the cervical spine. D/ / Stu Edmond MD / Stu Edmond MD Interpreting Provider: Stu Edmond MD Head CT 06/12/18 17:57 IMPRESSION: No acute intracranial abnormality. D/ / Stu Edmond MD / Stu Edmond MD Interpreting Provider: Stu Edmond MD - Assessment and plan (1) Acute diverticulitis Current Visit: No Status: Acute Assessment and plan: Conservative management. IV fluids. NPO. Antiemetics. Pain control. IV Cipro and Flagyl. Advance diet as tolerated. (2) Abnormal EKG Current Visit: Yes Status: Acute Assessment and plan: Cardiology were contacted in the ED and will be following along. I have ordered an echocardiogram. We will trend her cardiac enzymes. We will keep the patient on telemetry. Check TSH. (3) Syncopal episodes Current Visit: Yes Status: Acute Assessment and plan: Unclear what the circumstances are. She does have an abnormal EKG as I mentioned above. Cardiology will be following along. CT head was unremarkable. We will check TSH. Trend cardiac enzymes. We will keep her on telemetry. Qualifiers: Syncope type: unspecified Qualified Code(s): R55 - Syncope and collapse (4) HLD (hyperlipidemia) Current Visit: Yes Status: Acute Assessment and plan: Continue home medications Qualifiers: Hyperlipidemia type: unspecified Qualified Code(s): E78.5 - Hyperlipidemia, unspecified (5) Essential hypertension Current Visit: No Status: Acute Assessment and plan: Continue home meds (6) Iron deficiency anemia Current Visit: No Status: Chronic Assessment and plan: Continue home meds. Hemoglobin status Qualifiers: Iron deficiency anemia type: unspecified iron deficiency Qualified Code(s): D50.9 - Iron deficiency anemia, unspecified (7) Tobacco abuse Current Visit: Yes Status: Acute Assessment and plan: nicotine patch (8) DVT prophylaxis Current Visit: No Status: Acute Assessment and plan: Heparin subcutaneous - Time Spent With Patient Total time spent is greater than 50% in coordination of care (as documented) at patient's floor/unit and/or counseling patient:
[2018-06-12] MEDS ORDERED: *HR* FentaNYL (PF) 100 MCG/2 ML VIAL IVP ONE (21:13)
[2018-06-12] MEDS: 0.9 % Sodium Chloride 1,000 ML IVC SCH (21:57)
[2018-06-12] MEDS: Nicotine 21 MG PATCH.TD24 TD SCH (22:07)
[2018-06-12] MEDS: *HR* Heparin 5,000 UNIT/ML VIAL SQ SCH (22:08)
[2018-06-13] MEDS: *HR* Heparin 5,000 UNIT/ML VIAL SQ SCH ×2 (05:28→13:21)
[2018-06-13] MEDS: MetroNIDAZOLE 500 MG/100 ML 500 MG/100 ML BAG IVPB SCH ×2 (05:28→13:21)
[2018-06-13 05:36] LABS: Basophils % 0.3 %; Hematocrit 30.7 % (35.3-44.9); Hemoglobin 9.6 g/dL (11.5-15.4); Immature Granulocytes % 0.3 % (0-4); Lymphocytes # 1.2 K/mcL (0.6-4.6); Lymphocytes % 16.7 %; Mean Corpuscular HGB Conc 31.3 g/dL (31.6-35.5); Mean Corpuscular Hemoglobin 28.1 pg (28.0-33.3); Mean Corpuscular Volume 89.8 fL (83.0-100.0); Mean Platelet Volume 8.7 fL (9.4-12.4); Monocytes # 0.5 K/mcL (0.0-1.3); Monocytes % 6.7 %; Neutrophils # 5.7 K/mcL (1.6-8.9); Platelet Count 216 K/mcL (140-400); Red Blood Count 3.42 M/mcL (3.82-4.97)
[2018-06-13 05:59] LABS: BUN/Creatinine Ratio 11 (6-26); Blood Urea Nitrogen 8 mg/dL (8-23); Calcium 8.8 mg/dL (8.6-10.3); Carbon Dioxide 24 mEq/L (23-29); Chloride 109 mEq/L (98-107); Glucose 101 mg/dL (70-105); Magnesium 1.8 mg/dL (1.6-2.6); Osmolality,Calculated 284 (280-300); Potassium 3.6 mEq/L (3.5-5.1); Sodium 138 mEq/L (136-145); eGFR For Non-African Americans > 60 (> 60)
[2018-06-13 06:09] LABS: Thyroid Stimulating Hormone 1.896 mcIU/mL (0.340-5.600)
--- NOTE | 2018-06-13 08:02 | Cardiology Consult Note ---
<Sp [place] - Last Filed: 06/13/18 12:06> Date of Encounter: 06/13/18 Time of Encounter: 09:58 Assessment and Plan (1) Syncopal episodes Current Visit: Yes Status: Acute 67 y/o female had [address] head, Ct cervical spine negative EKG: sinus with rate 89 and irregular rhythm, T-wave inversion in V2,V3,V4 (change from previous), NO ST elevation or depression, QTc 486. along with this patient has acute diverticulitis and was taking miralax for constipation and reported diarrhea TSH WNL troponin <0.03x2 differential includes: arrythmia, orthostatic hypotension, medication (valium and percocet) echocardiogram is pending, ordering orthostatic vitals, PT/OT consulted. Qualifiers: Syncope type: unspecified Qualified Code(s): R55 - Syncope and collapse (2) Abnormal echocardiogram Current Visit: Yes Status: Acute Patients echocardiogram reports shows LVEF 45% with mild segmental LV systolic dysfunction, mild LV diastolic dysfunction, mild tricuspid regurgitation no previous echo or stress test on file discussed LHC vs stress test to patient and patient unsure if she would proceed with either of these options will follow up again. (3) Acute diverticulitis Current Visit: Yes Status: Acute CT abdomen pelvis shows acute diverticulitis management as per primary Discussion w patient/family: The assessment and plan as outlined above was discussed with the patient and/or family members who expressed understanding and agreement. All questions were answered. Thank you for involving us in the care of your patient. Please call with any questions. History of Present Illness Consult date: 06/13/18 Consult reason: syncope Chief complaint: syncope History of present illness: Ms. Khoury is a 67 year old female presents with cc of syncope and constipation. Patient reported she was walking from the bedroom to her bathroom when she felt lightheadedness and fell, lost consciousness. She lives at home alone, and does not know how long she was down. She was able to get up herself. She hit the right side of her head and right jaw. She fell two additional times on Wednesday and passed out. 2nd time she was walking in her house and she felt lightheaded. 3rd time she was arranging chairs in her living room. She denies chest pain, palpitations, sob. Patient also reports since last wednesday she has b/l Lower quadrant abdominal pain that is sharp, non-radiating. She has been taking miralax given by her PCP for constipation and has had few episodes of diarrhea. She denies hematochezia, melena, vomiting, hemetemsis but reports nausea. She denies being started on any new medications. She is prescribed both valium and percocet by her PCP. Past Med Surg Social Fam HX - Past Medical History Medical history: hyperlipidemia, hypertension, other Additional medical history: spina bifida, anemia, vitamin D deficiency, PUD, chronic back pain Psychiatric history: no psych history - Past Surgical History Surgical History: hysterectomy - Social History Smoking Status: Current every day smoker Smokeless Tobacco Status: No Alcohol use: none Drug use: none - Family History Grandmother Living Status: Hx Family Cancer: Yes Medications and Allergies Aspirin Enteric Coated [Aspirin EC] 2 tab PO DAILY 04/29/15 [History] Ezetimibe [Zetia] 10 mg PO DAILY 04/29/15 [History] Omeprazole [PriLOSEC] 20 mg PO BIDAC 04/29/15 [History] Venlafaxine XR (24 HR) [Effexor XR] 150 mg PO BID 04/29/15 [History] diazePAM [Valium] 5 mg PO BID 10/29/15 [History] Albuterol Sulfate [Albuterol Inhaler] 2 puff IH Q4H PRN 04/20/16 [History] Atorvastatin Calcium [Lipitor] 20 mg PO DAILY 04/20/16 [History] Cetirizine HCl [Zyrtec] 10 mg PO DAILY 04/20/16 [History] Ergocalciferol (VITAMIN D2) [Vitamin D2 (50,000 UNIT)] 50,000 unit PO QWEEK 04/20/16 [History] Ferrous Gluconate 324 mg PO BID 04/20/16 [History] Montelukast [Singulair] 10 mg PO DAILY 04/20/16 [History] Ranitidine HCl [Heartburn Relief] 150 mg PO BID 04/20/16 [History] Ciprofloxacin [Cipro] 500 mg PO BID #8 tablet 04/24/16 [Rx] metroNIDAZOLE [Flagyl] 500 mg PO TID #12 tablet 04/24/16 [Rx] Allergy/AdvReac Type Severity Reaction Status Date / Time Penicillins Allergy Unknown Hives Verified 04/20/17 20:33 All Systems Review: The remainder of the systems were reviewed and are negative Review of Systems: Constitutional: Denies fever, chills HEENT: Denies headache, trauma, blurry vision, eye discharge, ear pain, ear dis charge neck pain, sore throat, rhinorrhea Heart: Denies chest pain palpitations, LE edema Lungs: Denies shortness of breath cough Abdomen: as per HPI MSK: Denies back pain, falls, joint pain Kidney: Denies dysuria, hematuria Skin: Denies rash, ulcers Neuro: Denies numbness and tingling Psych: reports axniety, depression Physical Examination Vital Signs, Last 4 Hours Temp Pulse Resp BP Pulse Ox 06/13/18 07:50 98.8 F 86 16 109/61 92 General: Conversant, Other (depressed mood) HEENT: Atraumatic, Normocephaly, Mucus Membranes Moist Neck: No JVD, Normal carotid pulses Cardiac: Reg Rate and Rhythm, Normal S1 and S2, No Murmur Lungs: Normal Breath Sounds, No Wheeze, Rales, Rhonchi Neuro: Alert and responsive, No focal deficits noted Abdomen: Soft, Other (tender to lower quandrants of abdomen b/l ) Skin: No rashes noted on visualized skin Musculoskeletal: No Chest Wall Tenderness Extremities: No Clubbing, No Cyanosis, No Edema, Normal Pulses Results 06/13/18 05:17 06/13/18 05:17 Lab Results 06/12/18 06/12/18 06/12/18 17:33 17:33 17:33 WBC 8.6 Hgb 11.0 L Hct 33.6 L Plt Count 285 INR 1.0 APTT 25.8 L Sodium 135 L Potassium 3.9 Chloride 103 Carbon Dioxide 24 BUN 11 Creatinine 0.80 Glucose 92 Calcium 9.5 Magnesium Total Bilirubin 0.3 AST 14 ALT 11 Alkaline Phosphatase 66 Troponin I < 0.03 Lipase 9 L TSH 06/12/18 06/13/18 06/13/18 23:22 05:17 05:17 WBC 7.4 Hgb 9.6 L Hct 30.7 L Plt Count 216 INR APTT Sodium 138 Potassium 3.6 Chloride 109 H Carbon Dioxide 24 BUN 8 Creatinine 0.73 Glucose 101 Calcium 8.8 Magnesium 1.8 Total Bilirubin AST ALT Alkaline Phosphatase Troponin I < 0.03 Lipase TSH 1.896 06/13/18 05:17 WBC Hgb Hct Plt Count INR APTT Sodium Potassium Chloride Carbon Dioxide BUN Creatinine Glucose Calcium Magnesium Total Bilirubin AST ALT Alkaline Phosphatase Troponin I < 0.03 Lipase TSH Consult Discharge Plan - Plan Referrals: Leonel Esparza MD [Primary Care Provider] - <Cece Almanza - Last Filed: 06/13/18 13:58> Date of Encounter: 06/13/18 - Attending Attestation I examined this patient and my medical decision-making was reviewed with the Resident Physician. I agree with the documented findings, disposition and treatment plan as described. Ms. Khoury is a 67 year old female presenting with possible syncope. Also admitted for constipation. Patient experienced 3 episodes where she felt lightheaded and reportedly lost consciousness. Events unwitnessed. At the bedside the patient was sitting up, alert and oriented x3. Somewhat tangential in thought process and responses to questions. Vital signs stable. Patient stood up abruptly to ask question as we were leaving room. No reported symptoms at that time. Labs reviewed; Negative troponins x3, Hgb dropped from 11 to 9.6 (stool negative for blood) Echo demonstrated mild LV segmental wall motion abnormality, EF 45%. ECG demonstrates sinus rhythm with sinus arrhythmia similar to old ECG, nons pecific T abnormalities do not appear new Impression: 1. Suspected syncopal episodes: No clear cardiac etiology. ECG demonstrates sinus rhythm. Telemetry shows average HR 86 bpm, no pauses or dysrhythmia. Can check orthostatics but patient arose quickly from bed to standing without symptoms. States she "drinks a lot of water." Should also consider further workup of anemia. Consider polypharmacy. 2. LV systolic dysfunction: Echo demonstrated LVEF 45% with SWMA of unknown duration. No prior echo for comparison. Patient denies chest pain. Briefly discussed options including stress test vs LHC. She appeared opposed to both options but may consider stress testing. This seems reasonable since she has no complaints of chest pain and duration of findings is unknown. Troponins nega tive. No new ECG changes. Plan for stress testing tomorrow. Assessment and Plan Discussion w patient/family: The assessment and plan as outlined above was discussed with the patient and/or family members who expressed understanding and agreement. All questions were answered. Thank you for involving us in the care of your patient. Please call with any questions. History of Present Illness History of present illness: Ms. Khoury is a 67 year old female All Systems Review: The remainder of the systems were reviewed and are negative Physical Examination Vital Signs, Last 4 Hours Temp Pulse Resp BP Pulse Ox 06/13/18 11:24 99.5 F 93 16 129/86 99 Results 06/13/18 05:17 06/13/18 05:17 Lab Results 06/12/18 06/12/18 06/12/18 17:33 17:33 17:33 WBC 8.6 Hgb 11.0 L Hct 33.6 L Plt Count 285 INR 1.0 APTT 25.8 L Sodium 135 L Potassium 3.9 Chloride 103 Carbon Dioxide 24 BUN 11 Creatinine 0.80 Glucose 92 Calcium 9.5 Magnesium Total Bilirubin 0.3 AST 14 ALT 11 Alkaline Phosphatase 66 Troponin I < 0.03 Lipase 9 L TSH 06/12/18 06/13/18 06/13/18 23:22 05:17 05:17 WBC 7.4 Hgb 9.6 L Hct 30.7 L Plt Count 216 INR APTT Sodium 138 Potassium 3.6 Chloride 109 H Carbon Dioxide 24 BUN 8 Creatinine 0.73 Glucose 101 Calcium 8.8 Magnesium 1.8 Total Bilirubin AST ALT Alkaline Phosphatase Troponin I < 0.03 Lipase TSH 1.896 06/13/18 05:17 WBC Hgb Hct Plt Count INR APTT Sodium Potassium Chloride Carbon Dioxide BUN Creatinine Glucose Calcium Magnesium Total Bilirubin AST ALT Alkaline Phosphatase Troponin I < 0.03 Lipase TSH
[2018-06-13] MEDS ORDERED: Perflutren Lipid Microsphere 1.3 ML in 0.9 % Sodium Chloride 8.7 ML IVP ONE (09:17)
[2018-06-13] MEDS: Nicotine 21 MG PATCH.TD24 TD SCH (10:11)
[2018-06-13] MEDS: 0.9 % Sodium Chloride 1,000 ML IVC SCH ×2 (10:15→18:11)
--- NOTE | 2018-06-13 15:12 | Internal Med Progress Note ---
Hospitalist Progress Note - Encounter Date of Encounter: 06/13/18 Time of Encounter: 15:09 - Subjective Interval History: Pt states abdominal pain improved. Positive nausea but denies vomiting. Denies CP or SOB. Denies feeling lightheaded this am. - Exam Vitals: Temp Pulse Resp BP Pulse Ox 99.5 F 93 16 129/86 99 06/13/18 11:24 06/13/18 11:24 06/13/18 11:24 06/13/18 11:24 06/13/18 11:24 Exam: Exam: General: Conversant, Other (depressed mood) HEENT: Atraumatic, Normocephaly, Mucus Membranes Moist Neck: No JVD, Normal carotid pulses Cardiac: Reg Rate and Rhythm, Normal S1 and S2, No Murmur Lungs: Normal Breath Sounds, No Wheeze, Rales, Rhonchi Neuro: Alert and responsive, No focal deficits noted Abdomen: Soft, Other (tender to lower quandrants of abdomen b/l ) Skin: No rashes noted on visualized skin Musculoskeletal: No Chest Wall Tenderness Extremities: No Clubbing, No Cyanosis, No Edema, Normal Pulses - Assessment and Plan (1) Syncopal episodes Current Visit: Yes Status: Acute Assessment and Plan: Unclear etiology. She did have abnormal EKG. Cardiology recommending orthostatic vitals and echo. CT head was unremarkable. TSH 1.896. Trended troponin and <0.03. We will keep her on telemetry for now Will check D dimer STAT if elevated will check CTA chest. Echo EV/EV echocardiogram w enhance Impressions: LVEF 45%. Normal LV chamber size, wall thickness. Mild segmental left ventricular systolic dysfunction. There is no LV thrombus. Mild left ventricular diastolic dysfunction. Normal right ventricular structure and function. Mild tricuspid regurgitation. Mild pulmonary hypertension. No previous studies for comparison. (2) Acute diverticulitis Current Visit: Yes Status: Acute Assessment and Plan: Will continue with IVF, IV Cipro and Flagyl. Will keep NPO. Anti-emetics. Pt follows with Dr. Padron out pt. HE saw the pt as a courtesy visit. Will likely benefit from out pt follow up with surgery for evaluation for possible bowel surgery once symptoms completely resolves. Pain control. Advance diet as tolerated. (3) Iron deficiency anemia Current Visit: No Status: Chronic Assessment and Plan: Continue home meds. Hemoglobin 9.6. Stool occult negative. Continue with iron supplement. (4) Essential hypertension Current Visit: No Status: Acute (5) Abnormal EKG Current Visit: Yes Status: Acute (6) HLD (hyperlipidemia) Current Visit: Yes Status: Acute Assessment and Plan: Will check lipid profile. No statin listed on home medication (7) Tobacco abuse Current Visit: Yes Status: Acute Assessment and Plan: nicotine patch. Cessation strongly advised. DVT Prophylaxis: Heparin - Summary of Assessment and Plan Summary of Assessment and Plan: History of present illness: Dr. Hernandez Ms. Khoury is a 67 year old female history of hyperlipidemia, hypertension, previous diverticulitis, chronic back pain, tobacco abuse who presented to the ED complaining of about 5 days of constipation and a few syncopal episodes. The patient when she presented to the ED stated that she had a very large bowel movement about 5 days ago and was not able to have any bowel movements since then until yesterday when she had a couple of watery ones. She has been t reating herself with MiraLAX and some oral hydration but has had no success. In the meantime she has had subjective fevers, nausea, chills, sweats. She continued to develop worsening abdominal pain the last 24 hours. While she was dealing with this the patient apparently had a couple of episodes where she fell to the ground struck her head with a brief episodes of losing consciousness. This happened yesterday multiple times. She is not sure if she lost consciousness all 3 times but she lost consciousness on one . She gets hotflashes prior to those episodes but no other symptoms such as dizziness, headache, blurry vision, chest pain, shortness of breath, urinary symptoms, or neurological symptoms. She says she has had about 6 other episodes like those over the last year and did not seek help. Due to these complaints the patient presented to the ED where she was hemodynamically stable. She underwent laboratory workup that showed was unremarkable lab including a troponin of less than 0.03. Lipase was 9. Normal kidney function. Hemoglobin was 7.0. She had no leukocytosis. Stool occult was negative. She had a CT head and a CT cervical spine which were unremarkable. She also had a CT abdomen and pelvis which came back showing acute uncomplicated sigmoid diverticulitis. The patient also had an EKG that came back unremarkable for what seemed like possible sinus arrhythmia versus bigeminy. Dr. Jurado from cardiology was contacted over the phone and looked over at the EKG and thought the patient possibly has sinus arrhythmia versus sinus exit block and recommended that the patient be followed by them as a consult. The meantime the patient was given IV Cipro and Flagyl. Was also given 1 L normal saline. - Time Spent with Patient Total time spent is greater than 50% in coordination of care (as documented) at patient's floor/unit and/or counseling patient: less than 15 minutes Plan of Care Discussed with: patient Internal Medicine: Result - Labs CBC & Chem 7: 06/13/18 05:17 06/13/18 05:17 Labs: Short CBC 06/12/18 06/13/18 Range/Units 17:33 05:17 WBC 8.6 7.4 (4.3-11.1) K/mcL Hgb 11.0 L 9.6 L (11.5-15.4) g/dL Hct 33.6 L 30.7 L (35.3-44.9) % Plt Count 285 216 (140-400) K/mcL Neutrophils # 6.5 5.7 (1.6-8.9) K/mcL BMP 06/12/18 06/13/18 17:33 05:17 Sodium 135 L 138 Potassium 3.9 3.6 Chloride 103 109 H Carbon Dioxide 24 24 BUN 11 8 Creatinine 0.80 0.73 Glucose 92 101 Calcium 9.5 8.8 Cardiac Enzymes 06/12/18 06/12/18 06/13/18 Range/Units 17:33 23:22 05:17 Troponin I < 0.03 < 0.03 < 0.03 (< 0.04) ng/mL Liver Function 06/12/18 Range/Units 17:33 Total Bilirubin 0.3 (0.3-1.0) mg/dL Direct Bilirubin 0.0 (0.0-0.2) mg/dL AST 14 (13-39) Units/L ALT 11 (7-52) Units/L Alkaline Phosphatase 66 (34-104) Units/L Albumin 3.9 (3.5-5.7) g/dL Urine 06/12/18 Range/Units 18:43 Urine Color Yellow (Yellow) Urine Clarity Clear (Clear) Urine pH 6.5 (5.0-8.0) pH Units Ur Specific [place] 1.009 L (1.010-1.025) Urine Protein Negative (Neg-Trace) mg/dL Urine Glucose (UA) Normal (Normal) mg/dL - ABG Interpretation ABG results: PT/INR, D-dimer PT 11.3 Seconds (9.4-12.1) 06/12/18 17:33 - Impressions Impressions Chest X-Ray 06/12/18 17:33 IMPRESSION: No acute findings in the chest. D/ / Nava Boyle MD / Nava Boyle MD Interpreting Provider: Nava Boyle MD Abdomen/Pelvis CT 06/12/18 17:57 IMPRESSION: 1. Acute uncomplicated sigmoid colon diverticulitis. 2. No acute posttraumatic abnormality in the abdomen or pelvis. 3. Status post hysterectomy. D/ / Stu Edmond MD / Stu Edmond MD Interpreting Provider: Stu Edmond MD Cervical Spine CT 06/12/18 17:57 IMPRESSION: No acute abnormality of the cervical spine. D/ / Stu Edmond MD / Stu Edmond MD Interpreting Provider: Stu Edmond MD Head CT 06/12/18 17:57 IMPRESSION: No acute intracranial abnormality. D/ / Stu Edmond MD / Stu Edmond MD Interpreting Provider: Stu Edmond MD Echocardiogram 06/13/18 20:29 Impressions: LVEF 45%. Normal LV chamber size, wall thickness. Mild segmental left ventricular systolic dysfunction. There is no LV thrombus. Mild left ventricular diastolic dysfunction. Normal right ventricular structure and function. Mild tricuspid regurgitation. Mild pulmonary hypertension. No previous studies for comparison. Left Ventricular Wall Motion: Rest Echo Findings The mid anterior septal wall was hypokinetic. The apical septal wall was akinetic. All other wall segments showed normal motion. Findings: Study Quality * Technically adequate exam. ECG Findings * Normal sinus rhythm. Left Ventricle * LVEF 45%. * Normal LV chamber size, wall thickness. * Mild segmental left ventricular systolic dysfunction. * There is no LV thrombus. * Mild left ventricular diastolic dysfunction. Right Ventricle * Normal right ventricular structure and function. Left Atrium * Mildly dilated left atrium. Right Atrium * Normal right atrial size. Aortic Valve * Trileaflet aortic valve. * Mildly sclerotic aortic valve leaflets. * No aortic regurgitation. * No aortic stenosis. Mitral Valve * Normal mitral valve structure and function. * No mitral regurgitation. * No mitral stenosis. Tricuspid Valve * Normal tricuspid valve structure. * Mild tricuspid regurgitation. * Mild pulmonary hypertension. Pulmonic Valve * Normal pulmonic valve structure and function. * Trace pulmonic regurgitation. Aorta * Normally sized aortic root. Pericardium * The pericardium appears normal. IVC * Normal IVC dimensions and inspiratory collapse. Pulmonary Artery * Normal visualized portions of the main pulmonary artery. Consult Discharge Plan - Plan Referrals: Leonel Esparza MD [Primary Care Provider] - (1) Syncopal episodes Qualifiers: Syncope type: unspecified Qualified Code(s): R55 - Syncope and collapse (3) Iron deficiency anemia Qualifiers: Iron deficiency anemia type: unspecified iron deficiency Qualified Code(s): D50.9 - Iron deficiency anemia, unspecified (6) HLD (hyperlipidemia) Qualifiers: Hyperlipidemia type: unspecified Qualified Code(s): E78.5 - Hyperlipidemia, unspecified
[2018-06-13 16:37] VITALS: BP 138/80
--- NOTE | 2018-06-14 08:24 | Electrocardiograph Report ---
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
== END 2018-06-13 18:55 | disposition left against medical advice (07) | DRG 244 ==
LOC: 2ANU 17:11 → EMEROOARM 17:11 → 2ANU 21:46
PROVIDERS: ADMIT Internal Medicine; ATTEND Internal Medicine

== ENCOUNTER 2019-04-25 12:00 | Observation (INO) ==
[2019-04-25] MEDS ORDERED: 0.9 % Sodium Chloride 1,000 ML IVC ONE (12:50)
[2019-04-25] MEDS ORDERED: Isovue-370 500 ML BOTTLE IVP ONE (12:51)
[2019-04-25 13:33] LABS: Basophils % 0.2 %; Eosinophils % 0.1 %; Hematocrit 36.1 % (35.3-44.9); Hemoglobin 11.8 g/dL (11.5-15.4); Immature Granulocytes % 0.5 % (0-4); Lymphocytes # 1.4 K/mcL (0.6-4.6); Lymphocytes % 12.6 %; Mean Corpuscular HGB Conc 32.7 g/dL (31.6-35.5); Mean Corpuscular Hemoglobin 29.7 pg (28.0-33.3); Mean Corpuscular Volume 90.9 fL (83.0-100.0); Mean Platelet Volume 8.8 fL (9.4-12.4); Monocytes # 0.7 K/mcL (0.0-1.3); Monocytes % 6.6 %; Neutrophils # 8.8 K/mcL (1.6-8.9); Platelet Count 338 K/mcL (140-400); Red Blood Count 3.97 M/mcL (3.82-4.97); Red Cell Distribution Width 13.3 % (11.5-14.5)
[2019-04-25 13:59] LABS: Alanine Aminotransferase 6 Units/L (7-52); Albumin 3.7 g/dL (3.5-5.7); Alkaline Phosphatase 65 Units/L (34-104); Aspartate Amino Transferase 10 Units/L (13-39); BUN/Creatinine Ratio 13 (6-26); Bilirubin,Direct 0.1 mg/dL (0.0-0.2); Bilirubin,Indirect 0.3 mg/dL (0.0-1.2); Bilirubin,Total 0.4 mg/dL (0.3-1.0); Blood Urea Nitrogen 10 mg/dL (8-23); Calcium 9.6 mg/dL (8.6-10.3); Carbon Dioxide 23 mEq/L (23-29); Chloride 104 mEq/L (98-107); Globulin 3.6 g/dL (2.4-3.5); Glucose 108 mg/dL (70-105); Lipase 3 Units/L (11-82); Osmolality,Calculated 282 (280-300); Potassium 3.8 mEq/L (3.5-5.1); Sodium 136 mEq/L (136-145); Total Protein 7.3 g/dL (6.4-8.9); eGFR For African Americans > 60 (> 60); eGFR For Non-African Americans > 60 (> 60)
[2019-04-25] MEDS ORDERED: MetroNIDAZOLE 500 MG/100 ML 500 MG/100 ML BAG IVPB ONE (15:12)
[2019-04-25] MEDS ORDERED: Ondansetron 4 MG/2 ML VIAL IVP PRN (15:57)
[2019-04-25] MEDS ORDERED: Naloxone 0.4 MG/ML INJ IVP PRN (15:57)
[2019-04-25 17:08] LABS: Bilirubin,Urine Negative (Negative); Blood,Urine Trace (Negative); Clarity,Urine Clear (Clear); Color,Urine Yellow (Yellow); Glucose,Urine (UA) Normal (Normal); Ketones,Urine Negative (Negative); Leukocyte Esterase,Urine Negative (Negative); Nitrite,Urine Negative (Negative); PH,Urine 6.5 pH Units (5.0-8.0); Protein,Urine Negative (Neg-Trace); Specific Gravity,Urine > 1.030 (1.010-1.025); Urobilinogen,Urine Normal (Normal)
[2019-04-25 17:09] LABS: Bacteria,Urine None Seen per hpf (None-Few); Hyaline Casts,Urine None Seen per lpf (None-Few); Squamous Epithelial Cell,Urine Many per lpf (None-Few); WBC,Urine 0-3 per hpf (0-3)
[2019-04-25] MEDS: *HR* Heparin 5,000 UNIT/ML VIAL SQ SCH (18:26)
[2019-04-25] MEDS: Venlafaxine XR (24 HR) 75 MG CAP.ER.24H PO SCH (18:26)
[2019-04-25] MEDS: Ringers Solution, Lactated 1,000 ML IVC SCH (18:27)
[2019-04-25] MEDS: *HR* OxyCODONE/APAP 5/325 TABLET PO PRN (20:51)
[2019-04-25] MEDS: Famotidine 20 MG TABLET PO SCH (20:51)
[2019-04-25] MEDS: diazePAM 5 MG TABLET PO SCH (20:51)
[2019-04-25] MEDS: Nicotine 7 MG PATCH.TD24 TD SCH (21:43)
[2019-04-26] MEDS: MetroNIDAZOLE 500 MG/100 ML 500 MG/100 ML BAG IVPB SCH ×3 (00:02→15:57)
[2019-04-26] MEDS: *HR* Heparin 5,000 UNIT/ML VIAL SQ SCH ×2 (05:26→17:38)
[2019-04-26 05:36] LABS: Basophils % 0.2 %; Eosinophils % 0.1 %; Hematocrit 31.8 % (35.3-44.9); Hemoglobin 10.4 g/dL (11.5-15.4); Immature Granulocytes % 0.6 % (0-4); Lymphocytes % 9.7 %; Mean Corpuscular HGB Conc 32.7 g/dL (31.6-35.5); Mean Corpuscular Hemoglobin 29.9 pg (28.0-33.3); Mean Corpuscular Volume 91.4 fL (83.0-100.0); Mean Platelet Volume 8.8 fL (9.4-12.4); Monocytes # 0.6 K/mcL (0.0-1.3); Neutrophils # 8.4 K/mcL (1.6-8.9); Platelet Count 269 K/mcL (140-400); Red Blood Count 3.48 M/mcL (3.82-4.97); Red Cell Distribution Width 13.5 % (11.5-14.5); Segmented Neutrophils % 83.4 %; White Blood Count 10.1 K/mcL (4.3-11.1)
[2019-04-26 05:44] LABS: INR 1.3; Prothrombin Time 14.5 Seconds (9.4-12.1)
[2019-04-26 05:55] LABS: BUN/Creatinine Ratio 8 (6-26); Blood Urea Nitrogen 7 mg/dL (8-23); Carbon Dioxide 23 mEq/L (23-29); Chloride 106 mEq/L (98-107); Glucose 93 mg/dL (70-105); Magnesium 1.9 mg/dL (1.6-2.6); Osmolality,Calculated 274 (280-300); Potassium 3.5 mEq/L (3.5-5.1); Sodium 133 mEq/L (136-145); eGFR For African Americans > 60 (> 60); eGFR For Non-African Americans > 60 (> 60)
[2019-04-26] MEDS: Nicotine 7 MG PATCH.TD24 TD SCH (08:35)
[2019-04-26] MEDS: Aspirin Enteric Coated 81 MG Tablet PO SCH (08:36)
[2019-04-26] MEDS: Metoprolol XL (24 HR) Succ 25 MG TAB.ER.24H PO SCH (08:36)
[2019-04-26] MEDS: Venlafaxine XR (24 HR) 150 MG CAP.ER.24H PO SCH (08:36)
[2019-04-26] MEDS: Loratadine 10 MG TABLET PO SCH (08:36)
[2019-04-26] MEDS: Famotidine 20 MG TABLET PO SCH ×2 (08:36→20:23)
[2019-04-26] MEDS: diazePAM 5 MG TABLET PO SCH ×3 (08:37→20:23)
[2019-04-26] MEDS: Fluticasone Propionate Nasal 50 MCG/SPRAY BOTTLE NS SCH (08:40)
[2019-04-26] MEDS ORDERED: NON-FORMULARY MEDICATION 1 EACH EACH (Ezetimibe [Zetia] 10 MG) PO SCH (09:00)
[2019-04-26] MEDS: *HR* OxyCODONE/APAP 5/325 TABLET PO PRN (14:57)
[2019-04-26] MEDS: Ringers Solution, Lactated 1,000 ML IVC SCH (16:01)
[2019-04-26] MEDS: Venlafaxine XR (24 HR) 75 MG CAP.ER.24H PO SCH (17:37)
[2019-04-26] MEDS: Lactulose Oral Soln 20 GM/30 ML UDC PO SCH (20:23)
[2019-04-27] MEDS: MetroNIDAZOLE 500 MG/100 ML 500 MG/100 ML BAG IVPB SCH (00:27)
[2019-04-27 05:40] LABS: Basophils % 0.2 %; Eosinophils % 0.1 %; Hematocrit 30.7 % (35.3-44.9); Hemoglobin 10.1 g/dL (11.5-15.4); Immature Granulocytes % 0.6 % (0-4); Lymphocytes # 1.6 K/mcL (0.6-4.6); Lymphocytes % 13.4 %; Mean Corpuscular HGB Conc 32.9 g/dL (31.6-35.5); Mean Corpuscular Hemoglobin 29.5 pg (28.0-33.3); Mean Corpuscular Volume 89.8 fL (83.0-100.0); Mean Platelet Volume 8.6 fL (9.4-12.4); Monocytes # 0.8 K/mcL (0.0-1.3); Monocytes % 6.5 %; Neutrophils # 9.3 K/mcL (1.6-8.9); Platelet Count 278 K/mcL (140-400); Red Blood Count 3.42 M/mcL (3.82-4.97); Red Cell Distribution Width 13.3 % (11.5-14.5); Segmented Neutrophils % 79.2 %; White Blood Count 11.7 K/mcL (4.3-11.1)
[2019-04-27 06:07] LABS: BUN/Creatinine Ratio 4 (6-26); Blood Urea Nitrogen 3 mg/dL (8-23); Calcium 9.1 mg/dL (8.6-10.3); Carbon Dioxide 24 mEq/L (23-29); Chloride 103 mEq/L (98-107); Glucose 132 mg/dL (70-105); Osmolality,Calculated 276 (280-300); Potassium 3.4 mEq/L (3.5-5.1); Sodium 134 mEq/L (136-145); eGFR For African Americans > 60 (> 60); eGFR For Non-African Americans > 60 (> 60)
[2019-04-27] MEDS: *HR* Heparin 5,000 UNIT/ML VIAL SQ SCH (06:40)
[2019-04-27 07:22] VITALS: BP 119/72
[2019-04-27] MEDS: Metoprolol XL (24 HR) Succ 25 MG TAB.ER.24H PO SCH (09:23)
[2019-04-27] MEDS: Venlafaxine XR (24 HR) 150 MG CAP.ER.24H PO SCH (09:24)
[2019-04-27] MEDS: Famotidine 20 MG TABLET PO SCH (09:25)
[2019-04-27] MEDS: Loratadine 10 MG TABLET PO SCH (09:25)
[2019-04-27] MEDS: Aspirin Enteric Coated 81 MG Tablet PO SCH (09:25)
[2019-04-27] MEDS: diazePAM 5 MG TABLET PO SCH (09:25)
[2019-04-27] MEDS: Lactulose Oral Soln 20 GM/30 ML UDC PO SCH (09:26)
[2019-04-27] MEDS: Fluticasone Propionate Nasal 50 MCG/SPRAY BOTTLE NS SCH (09:30)
[2019-04-27] MEDS: Nicotine 7 MG PATCH.TD24 TD SCH (09:30)
[2019-04-27] MEDS ORDERED: MetroNIDAZOLE 500 MG/100 ML 500 MG/100 ML BAG IVPB SCH (16:00)
== END 2019-04-27 10:15 | disposition left against medical advice (07) ==
LOC: EMEROOARM 12:00 → 3ANU 12:00 → SUATTDRO 17:02 → 3ANU 17:31
PROVIDERS: ADMIT Pharmacist; ATTEND Internal Medicine

== ENCOUNTER 2019-05-19 15:48 | Inpatient (IN) ==
[2019-05-19] MEDS ORDERED: 0.9 % Sodium Chloride 500 ML IVC ONE (16:32)
[2019-05-19] MEDS ORDERED: Nitroglycerin 1 INCH/GM PACKET TP ONE (16:32)
[2019-05-19 17:18] LABS: Basophils % 0.2 %; Eosinophils % 0.2 %; Hematocrit 37.9 % (35.3-44.9); Hemoglobin 12.8 g/dL (11.5-15.4); Immature Granulocytes % 0.2 % (0-4); Lymphocytes # 1.9 K/mcL (0.6-4.6); Mean Corpuscular HGB Conc 33.8 g/dL (31.6-35.5); Mean Corpuscular Hemoglobin 30.8 pg (28.0-33.3); Mean Corpuscular Volume 91.1 fL (83.0-100.0); Mean Platelet Volume 8.6 fL (9.4-12.4); Monocytes # 0.3 K/mcL (0.0-1.3); Monocytes % 6.1 %; Platelet Count 237 K/mcL (140-400); Red Blood Count 4.16 M/mcL (3.82-4.97); Red Cell Distribution Width 14.4 % (11.5-14.5); Segmented Neutrophils % 48.3 %; White Blood Count 4.1 K/mcL (4.3-11.1)
[2019-05-19 17:35] LABS: INR 1.1; Prothrombin Time 12.4 Seconds (9.4-12.1)
[2019-05-19 17:38] LABS: Activated Partial Thrombo Time 27.2 Seconds (26.0-36.0)
[2019-05-19 17:41] LABS: BUN/Creatinine Ratio 9 (6-26); Blood Urea Nitrogen 7 mg/dL (8-23); Calcium 9.5 mg/dL (8.6-10.3); Carbon Dioxide 26 mEq/L (23-29); Chloride 104 mEq/L (98-107); Glucose 96 mg/dL (70-105); Lipase 15 Units/L (11-82); Osmolality,Calculated 282 (280-300); Potassium 3.4 mEq/L (3.5-5.1); Sodium 137 mEq/L (136-145); eGFR For African Americans > 60 (> 60); eGFR For Non-African Americans > 60 (> 60)
[2019-05-19 17:42] LABS: Troponin I < 0.03 ng/mL (< 0.04)
[2019-05-20] MEDS ORDERED: Naloxone 0.4 MG/ML INJ IVP PRN (00:49)
[2019-05-20 01:49] LABS: Hematocrit 34.4 % (35.3-44.9); Mean Corpuscular HGB Conc 32.3 g/dL (31.6-35.5); Mean Corpuscular Hemoglobin 30.5 pg (28.0-33.3); Mean Corpuscular Volume 94.5 fL (83.0-100.0); Mean Platelet Volume 8.8 fL (9.4-12.4); Platelet Count 212 K/mcL (140-400); Red Blood Count 3.64 M/mcL (3.82-4.97); Red Cell Distribution Width 14.6 % (11.5-14.5); White Blood Count 4.1 K/mcL (4.3-11.1)
[2019-05-20 01:50] LABS: Hemoglobin 11.1 g/dL (11.5-15.4)
[2019-05-20 02:07] LABS: BUN/Creatinine Ratio 11 (6-26); Blood Urea Nitrogen 8 mg/dL (8-23); Calcium 8.9 mg/dL (8.6-10.3); Carbon Dioxide 22 mEq/L (23-29); Chloride 110 mEq/L (98-107); Glucose 105 mg/dL (70-105); Osmolality,Calculated 287 (280-300); Potassium 3.6 mEq/L (3.5-5.1); Sodium 139 mEq/L (136-145); eGFR For African Americans > 60 (> 60); eGFR For Non-African Americans > 60 (> 60)
[2019-05-20] MEDS ORDERED: Perflutren Lipid Microsphere 1.3 ML in 0.9 % Sodium Chloride 8.7 ML IVP ONE (07:13)
[2019-05-20] MEDS ORDERED: Regadenoson 0.4 MG/5 ML SYRINGE IVP ONE ×2 (07:29→08:56)
[2019-05-20] MEDS ORDERED: Aspirin Enteric Coated 81 MG Tablet PO SCH (09:00)
[2019-05-20] MEDS ORDERED: Perflutren Lipid Microsphere 2 ML VIAL ONE (10:38)
[2019-05-20] MEDS: Venlafaxine XR (24 HR) 150 MG CAP.ER.24H PO SCH (20:59)
[2019-05-20] MEDS: (Ezetimibe [Zetia] 10 MG) PO SCH (21:00)
[2019-05-20] MEDS: Fluticasone Propionate Nasal 50 MCG/SPRAY BOTTLE NS SCH (21:00)
[2019-05-20] MEDS: Metoprolol XL (24 HR) Succ 25 MG TAB.ER.24H PO SCH (21:00)
[2019-05-20] MEDS: Venlafaxine XR (24 HR) 75 MG CAP.ER.24H PO SCH (21:00)
[2019-05-20] MEDS: Lactobacillus 1 EACH CAP.SPRINK PO SCH (21:07)
[2019-05-20] MEDS: *HR* OxyCODONE/APAP 5/325 TABLET PO PRN (21:07)
[2019-05-20] MEDS: diazePAM 5 MG TABLET PO SCH (21:07)
[2019-05-20] MEDS: Famotidine 20 MG TABLET PO SCH (21:07)
[2019-05-20] MEDS: Nicotine 14 MG PATCH.TD24 TD SCH ×2 (21:28→23:23)
[2019-05-21] MEDS: Venlafaxine XR (24 HR) 150 MG CAP.ER.24H PO SCH (07:57)
[2019-05-21] MEDS: Lactobacillus 1 EACH CAP.SPRINK PO SCH ×2 (07:57→20:06)
[2019-05-21] MEDS: diazePAM 5 MG TABLET PO SCH ×3 (07:57→20:06)
[2019-05-21] MEDS: Metoprolol XL (24 HR) Succ 25 MG TAB.ER.24H PO SCH (07:57)
[2019-05-21] MEDS: Loratadine 10 MG TABLET PO SCH (07:58)
[2019-05-21] MEDS: Famotidine 20 MG TABLET PO SCH ×2 (07:58→20:06)
[2019-05-21] MEDS: Aspirin Enteric Coated 81 MG Tablet PO SCH (07:58)
[2019-05-21] MEDS: (Ezetimibe [Zetia] 10 MG) PO SCH (07:59)
[2019-05-21] MEDS: Fluticasone Propionate Nasal 50 MCG/SPRAY BOTTLE NS SCH (07:59)
[2019-05-21] MEDS: Venlafaxine XR (24 HR) 75 MG CAP.ER.24H PO SCH (16:03)
[2019-05-21] MEDS: *HR* OxyCODONE/APAP 5/325 TABLET PO PRN (16:06)
[2019-05-21] MEDS: Nicotine 14 MG PATCH.TD24 TD SCH ×2 (22:56→22:57)
[2019-05-22] MEDS ORDERED: *HR* Midazolam HCl 2 MG/2 ML VIAL ONE (09:04)
[2019-05-22] MEDS ORDERED: *HR* FentaNYL (PF) 100 MCG/2 ML VIAL ONE (09:05)
[2019-05-22] MEDS ORDERED: *HR* Heparin 10,000 UNIT/10 ML VIAL ONE (09:48)
[2019-05-22] MEDS ORDERED: Heparin 1,000 UNITS/500 mL 500 ML ONE (09:48)
[2019-05-22] MEDS ORDERED: 0.9 % Sodium Chloride 2,000 ML ONE (09:48)
[2019-05-22] MEDS ORDERED: ISOVUE-370 200 ML INFUS..BTL ONE (09:48)
[2019-05-22] MEDS ORDERED: Nitroglycerin 1,000 MCG/10 ML VIAL IV ONE (09:48)
[2019-05-22] MEDS: Lactobacillus 1 EACH CAP.SPRINK PO SCH ×2 (10:13→22:23)
[2019-05-22] MEDS: Venlafaxine XR (24 HR) 150 MG CAP.ER.24H PO SCH (10:13)
[2019-05-22] MEDS: Metoprolol XL (24 HR) Succ 25 MG TAB.ER.24H PO SCH (10:14)
[2019-05-22] MEDS: Aspirin Enteric Coated 81 MG Tablet PO SCH (10:15)
[2019-05-22] MEDS: Loratadine 10 MG TABLET PO SCH (10:15)
[2019-05-22] MEDS: Famotidine 20 MG TABLET PO SCH ×2 (10:15→22:23)
[2019-05-22] MEDS: diazePAM 5 MG TABLET PO SCH ×3 (10:15→22:23)
[2019-05-22] MEDS: Fluticasone Propionate Nasal 50 MCG/SPRAY BOTTLE NS SCH (10:16)
[2019-05-22] MEDS: (Ezetimibe [Zetia] 10 MG) PO SCH (10:16)
[2019-05-22] MEDS: *HR* OxyCODONE/APAP 5/325 TABLET PO PRN (12:38)
[2019-05-22] MEDS: Nicotine 14 MG PATCH.TD24 TD SCH ×2 (16:11→22:26)
[2019-05-22 17:35] LABS: Estimated Average Glucose 131 mg/dl
[2019-05-22] MEDS: Venlafaxine XR (24 HR) 75 MG CAP.ER.24H PO SCH (18:26)
[2019-05-23] MEDS: Lactobacillus 1 EACH CAP.SPRINK PO SCH ×2 (08:17→21:10)
[2019-05-23] MEDS: Aspirin Enteric Coated 81 MG Tablet PO SCH (08:17)
[2019-05-23] MEDS: Venlafaxine XR (24 HR) 150 MG CAP.ER.24H PO SCH (08:17)
[2019-05-23] MEDS: Loratadine 10 MG TABLET PO SCH (08:17)
[2019-05-23] MEDS: diazePAM 5 MG TABLET PO SCH ×3 (08:17→21:10)
[2019-05-23] MEDS: Metoprolol XL (24 HR) Succ 25 MG TAB.ER.24H PO SCH (08:17)
[2019-05-23] MEDS: Famotidine 20 MG TABLET PO SCH ×2 (08:17→21:10)
[2019-05-23] MEDS: Fluticasone Propionate Nasal 50 MCG/SPRAY BOTTLE NS SCH (08:22)
[2019-05-23] MEDS: (Ezetimibe [Zetia] 10 MG) PO SCH (08:22)
[2019-05-23] MEDS: *HR* OxyCODONE/APAP 5/325 TABLET PO PRN ×3 (08:26→23:45)
[2019-05-23] MEDS: Venlafaxine XR (24 HR) 75 MG CAP.ER.24H PO SCH (16:28)
[2019-05-23] MEDS: Nicotine 14 MG PATCH.TD24 TD SCH ×2 (18:28→23:46)
[2019-05-23] MEDS ORDERED: Ondansetron ODT 4 MG TAB.RAPDIS SL PRN (20:00)
[2019-05-23] MEDS: Chlorhexidine Rinse 15 ML MOUTHWASH MM SCH (21:11)
[2019-05-24] MEDS: Metoprolol XL (24 HR) Succ 25 MG TAB.ER.24H PO SCH (05:28)
[2019-05-24] MEDS: Chlorhexidine Rinse 15 ML MOUTHWASH MM SCH ×2 (05:29→20:06)
[2019-05-24] MEDS ORDERED: Nitroglycerin 25 MG/250 ML INFUS..BTL IVC ONE (06:42)
[2019-05-24] MEDS ORDERED: *HR* Midazolam HCl 5 MG/5 ML VIAL IVP ONE (06:44)
[2019-05-24] MEDS ORDERED: *HR* Propofol 200 MG/20 ML VIAL IVP ONE (06:44)
[2019-05-24] MEDS ORDERED: *HR* FentaNYL (PF) 1,000 MCG/20 ML VIAL ONE (06:44)
[2019-05-24] MEDS ORDERED: *HR* Rocuronium Bromide 50 MG/5 ML VIAL ONE ×2 (06:45→09:15)
[2019-05-24] MEDS ORDERED: *HR* PHENYLEPHRINE 1,000 MCG/10 ML SYRINGE IVP ONE (06:45)
[2019-05-24] MEDS ORDERED: Dexamethasone 4 MG/ML VIAL ONE (06:45)
[2019-05-24] MEDS ORDERED: *HR* Magnesium Sulfate 1 GM/2 ML VIAL ONE (06:46)
[2019-05-24] MEDS ORDERED: Famotidine 20 MG/2 ML VIAL ONE (06:46)
[2019-05-24] MEDS ORDERED: Lidocaine 2% Syringe 100 MG/5 ML ONE (06:46)
[2019-05-24] MEDS ORDERED: Tranexamic Acid 1,000 MG/10 ML VIAL ONE (06:52)
[2019-05-24] MEDS ORDERED: Clindamycin 900 MG/50 ML 900 MG/50 ML IV.SOLN IVPB ONE (07:00)
[2019-05-24 07:28] LABS: Hematocrit 34.2 % (35.3-44.9); Hemoglobin 11.2 g/dL (11.5-15.4); Mean Corpuscular HGB Conc 32.7 g/dL (31.6-35.5); Mean Corpuscular Hemoglobin 30.3 pg (28.0-33.3); Mean Corpuscular Volume 92.4 fL (83.0-100.0); Platelet Count 224 K/mcL (140-400); Red Cell Distribution Width 14.6 % (11.5-14.5); White Blood Count 4.5 K/mcL (4.3-11.1)
[2019-05-24] MEDS ORDERED: Dextrose 50 % in Water (Vial) 30 ML, Sodium Bicarbonate 20 MEQ, Lidocaine 1% 5 ML, Insu... TH ONE ×3 (07:45)
[2019-05-24] MEDS ORDERED: Dextrose 50 % in Water (Vial) 30 ML, Sodium Bicarbonate 20 MEQ, Potassium Chloride 15 M... TH ONE (07:45)
[2019-05-24] MEDS ORDERED: Norepinephrine 4 MG in 0.9 % Sodium Chloride 250 ML IVC PRN (07:45)
[2019-05-24] MEDS ORDERED: Heparin 15,000 UNIT in 0.9 % Sodium Chloride 500 ML IV ONE (07:45)
[2019-05-24] MEDS ORDERED: Insulin Human Regular 100 UNIT in 0.9 % Sodium Chloride 100 ML IV PRN (07:45)
[2019-05-24 07:55] LABS: BUN/Creatinine Ratio 19 (6-26); Blood Urea Nitrogen 18 mg/dL (8-23); Calcium 9.1 mg/dL (8.6-10.3); Carbon Dioxide 26 mEq/L (23-29); Chloride 106 mEq/L (98-107); Glucose 90 mg/dL (70-105); Osmolality,Calculated 289 (280-300); Potassium 4.1 mEq/L (3.5-5.1); Sodium 139 mEq/L (136-145); eGFR For African Americans > 60 (> 60); eGFR For Non-African Americans 60 (> 60)
[2019-05-24 08:12] LABS: ABG Base Excess 0 mEq/L (-2 to 3); ABG Chloride 108 mEq/L (98-107); ABG Glucose 96 mg/dL (60-95); ABG HCO3 28 mEq/L (21-27); ABG Ionized Calcium 1.22 mmol/L (1.15-1.35); ABG Oxygen Saturation 100 % (95-98); ABG PCO2 58 mmHg (35-45); ABG PH 7.29 pH Units (7.32-7.45); ABG PO2 325 mmHg (85-104); ABG TCO2 30 mEq/L (20-26)
[2019-05-24] MEDS ORDERED: Tranexamic Acid 1,000 MG/10 ML VIAL IVPB ONE (08:35)
[2019-05-24] MEDS ORDERED: *HR* Magnesium Sulfate 2 GM/50 ML PIGGYBACK IVPB ONE (08:35)
[2019-05-24] MEDS ORDERED: Albumin Human 25% 25 GM/100 ML IV.SOLN IV ONE (08:35)
[2019-05-24] MEDS ORDERED: *HR* Phenylephrine 10 MG/ML VIAL IVC ONE (08:35)
[2019-05-24] MEDS ORDERED: Mannitol 25% vial 12.5 GM/50 ML VIAL IVP ONE (08:35)
[2019-05-24] MEDS ORDERED: Lidocaine 2% Syringe 100 MG/5 ML IV ONE (08:35)
[2019-05-24] MEDS ORDERED: *HR* Heparin 10,000 UNIT/10 ML VIAL IV ONE (08:35)
[2019-05-24] MEDS ORDERED: Protamine Sulfate 250 MG/25 ML VIAL IVP ONE (08:55)
[2019-05-24] MEDS ORDERED: Calcium Gluconate 1,000 MG/10 ML VIAL ONE (08:55)
[2019-05-24 09:12] LABS: ABG Base Excess 0 mEq/L (-2 to 3); ABG Chloride 106 mEq/L (98-107); ABG Glucose 90 mg/dL (60-95); ABG HCO3 25 mEq/L (21-27); ABG Ionized Calcium 1.18 mmol/L (1.15-1.35); ABG Oxygen Saturation 100 % (95-98); ABG PCO2 40 mmHg (35-45); ABG PO2 264 mmHg (85-104); ABG TCO2 26 mEq/L (20-26)
[2019-05-24 09:49] LABS: ABG Base Excess 4 mEq/L (-2 to 3); ABG Chloride 101 mEq/L (98-107); ABG Glucose 123 mg/dL (60-95); ABG HCO3 27 mEq/L (21-27); ABG Ionized Calcium 0.96 mmol/L (1.15-1.35); ABG Oxygen Saturation 100 % (95-98); ABG PCO2 35 mmHg (35-45); ABG PO2 526 mmHg (85-104); ABG TCO2 28 mEq/L (20-26)
[2019-05-24 10:24] LABS: ABG Base Excess 7 mEq/L (-2 to 3); ABG Chloride 101 mEq/L (98-107); ABG Glucose 72 mg/dL (60-95); ABG HCO3 31 mEq/L (21-27); ABG Ionized Calcium 0.93 mmol/L (1.15-1.35); ABG Oxygen Saturation 100 % (95-98); ABG PCO2 42 mmHg (35-45); ABG PH 7.48 pH Units (7.32-7.45); ABG PO2 559 mmHg (85-104); ABG TCO2 32 mEq/L (20-26)
[2019-05-24] MEDS ORDERED: *HR* Dextrose 50 % in Water (Syg) 50 ML SYRINGE ONE (10:27)
[2019-05-24 11:14] LABS: ABG Base Excess 3 mEq/L (-2 to 3); ABG Chloride 103 mEq/L (98-107); ABG Glucose 46 mg/dL (60-95); ABG HCO3 27 mEq/L (21-27); ABG Ionized Calcium 1.35 mmol/L (1.15-1.35); ABG Oxygen Saturation 100 % (95-98); ABG PCO2 37 mmHg (35-45); ABG PH 7.46 pH Units (7.32-7.45); ABG PO2 215 mmHg (85-104); ABG TCO2 28 mEq/L (20-26)
[2019-05-24 11:31] LABS: ABG Base Excess 3 mEq/L (-2 to 3); ABG Chloride 105 mEq/L (98-107); ABG Glucose 109 mg/dL (60-95); ABG HCO3 26 mEq/L (21-27); ABG Ionized Calcium 1.28 mmol/L (1.15-1.35); ABG Oxygen Saturation 99 % (95-98); ABG PCO2 37 mmHg (35-45); ABG PH 7.47 pH Units (7.32-7.45); ABG PO2 123 mmHg (85-104); ABG TCO2 28 mEq/L (20-26)
[2019-05-24] MEDS ORDERED: Insulin Regular, Human 100 UNIT/ML IV PRN (12:03)
[2019-05-24] MEDS ORDERED: Potassium Chloride 40 MEQ/200 ML BAG IVPB PRN (12:03)
[2019-05-24] MEDS ORDERED: *HR* Dextrose 50 % in Water (Syg) 50 ML SYRINGE IVP PRN (12:03)
[2019-05-24] MEDS ORDERED: D5% in Water 50 ML ONE (12:04)
[2019-05-24] MEDS ORDERED: Acetaminophen 325 MG TABLET PO PRN (12:06)
[2019-05-24] MEDS ORDERED: Acetaminophen 650 MG RECTAL SUPP RC PRN (12:06)
[2019-05-24] MEDS ORDERED: Ondansetron 4 MG/2 ML VIAL IVP PRN (12:09)
[2019-05-24 12:12] LABS: ABG Base Excess 3 mEq/L (-2 to 3); ABG HCO3 27 mEq/L (21-27); ABG Oxygen Saturation 98 % (95-98); ABG PCO2 37 mmHg (35-45); ABG PH 7.46 pH Units (7.32-7.45); ABG PO2 105 mmHg (85-104); ABG TCO2 28 mEq/L (20-26); Blood Gas VT 500 cc
[2019-05-24] MEDS ORDERED: Calcium Gluconate 1gm/50mL 1 GM/50 ML BAG IVPB PRN (12:12)
[2019-05-24] MEDS ORDERED: Norepinephrine 4 MG in 0.9 % Sodium Chloride 250 ML IVC SCH (12:15)
[2019-05-24] MEDS ORDERED: 0.9 % Sodium Chloride w KCl 20 MEQ/1,000 ML MLS IVC SCH (12:15)
[2019-05-24] MEDS ORDERED: Insulin Human Regular 100 UNIT in 0.9 % Sodium Chloride 100 ML IVC SCH (12:15)
[2019-05-24 12:23] LABS: Basophils % 0.1 %; Eosinophils % 0.1 %; Hematocrit 36.1 % (35.3-44.9); Hemoglobin 12.6 g/dL (11.5-15.4); Immature Granulocytes % 0.7 % (0-4); Lymphocytes # 1.3 K/mcL (0.6-4.6); Lymphocytes % 9.3 %; Mean Corpuscular HGB Conc 34.9 g/dL (31.6-35.5); Mean Corpuscular Hemoglobin 30.7 pg (28.0-33.3); Mean Corpuscular Volume 87.8 fL (83.0-100.0); Mean Platelet Volume 8.8 fL (9.4-12.4); Monocytes # 0.5 K/mcL (0.0-1.3); Monocytes % 3.6 %; Neutrophils # 11.7 K/mcL (1.6-8.9); Platelet Count 128 K/mcL (140-400); Red Blood Count 4.11 M/mcL (3.82-4.97); Red Cell Distribution Width 14.1 % (11.5-14.5); Segmented Neutrophils % 86.2 %
[2019-05-24 12:24] LABS: White Blood Count 13.6 K/mcL (4.3-11.1)
[2019-05-24 12:32] LABS: INR 1.2
[2019-05-24 12:35] LABS: Activated Partial Thrombo Time 27.9 Seconds (26.0-36.0)
[2019-05-24 12:36] LABS: Prothrombin Time 13.1 Seconds (9.4-12.1)
[2019-05-24 12:40] LABS: BUN/Creatinine Ratio 17 (6-26); Blood Urea Nitrogen 13 mg/dL (8-23); Calcium 8.7 mg/dL (8.6-10.3); Carbon Dioxide 26 mEq/L (23-29); Chloride 109 mEq/L (98-107); Glucose 79 mg/dL (70-105); Magnesium 3.4 mg/dL (1.6-2.6); Osmolality,Calculated 291 (280-300); Potassium 4.1 mEq/L (3.5-5.1); Sodium 141 mEq/L (136-145); eGFR For African Americans > 60 (> 60); eGFR For Non-African Americans > 60 (> 60)
[2019-05-24] MEDS: Loratadine 10 MG TABLET PO SCH (12:57)
[2019-05-24] MEDS: Famotidine 20 MG TABLET PO SCH ×2 (12:58→20:06)
[2019-05-24] MEDS: Lactobacillus 1 EACH CAP.SPRINK PO SCH ×2 (12:58→20:06)
[2019-05-24] MEDS: (Ezetimibe [Zetia] 10 MG) PO SCH (12:58)
[2019-05-24] MEDS: Venlafaxine XR (24 HR) 150 MG CAP.ER.24H PO SCH (12:58)
[2019-05-24] MEDS: diazePAM 5 MG TABLET PO SCH ×3 (12:58→20:06)
[2019-05-24] MEDS: Fluticasone Propionate Nasal 50 MCG/SPRAY BOTTLE NS SCH (12:58)
[2019-05-24] MEDS: Pantoprazole 40 MG VIAL IVP SCH (13:07)
[2019-05-24] MEDS: *HR* FentaNYL (PF) 100 MCG/2 ML VIAL IVP PRN ×2 (13:14→20:05)
[2019-05-24] MEDS: *HR* OxyCODONE/APAP 5/325 TABLET PO PRN ×2 (13:15→16:45)
[2019-05-24 14:16] LABS: ABG Base Excess 1 mEq/L (-2 to 3); ABG HCO3 29 mEq/L (21-27); ABG Oxygen Saturation 96 % (95-98); ABG PCO2 61 mmHg (35-45); ABG PH 7.29 pH Units (7.32-7.45); ABG PO2 96 mmHg (85-104); ABG TCO2 31 mEq/L (20-26); Blood Gas Modality CPAP/PS; Blood Gas Pressure Support 8 cm H2O
[2019-05-24] MEDS ORDERED: 0.9 % Sodium Chloride 500 ML ONE (14:39)
[2019-05-24 15:38] LABS: ABG Base Excess 1 mEq/L (-2 to 3); ABG HCO3 28 mEq/L (21-27); ABG Oxygen Saturation 96 % (95-98); ABG PCO2 55 mmHg (35-45); ABG PH 7.32 pH Units (7.32-7.45); ABG PO2 93 mmHg (85-104); ABG TCO2 30 mEq/L (20-26)
[2019-05-24] MEDS: Clindamycin 900 MG/50 ML 900 MG/50 ML IV.SOLN IVPB SCH ×2 (16:04→23:08)
[2019-05-24 17:13] LABS: ABG Base Excess -1 mEq/L (-2 to 3); ABG HCO3 26 mEq/L (21-27); ABG Oxygen Saturation 94 % (95-98); ABG PCO2 57 mmHg (35-45); ABG PH 7.28 pH Units (7.32-7.45); ABG PO2 80 mmHg (85-104); ABG TCO2 28 mEq/L (20-26)
[2019-05-24] MEDS: niCARdipine 20 MG/200 ML MLS IVC SCH ×4 (17:47→21:00)
[2019-05-24] MEDS ORDERED: Furosemide 20 MG/2 ML VIAL IVP ONE (18:06)
[2019-05-24] MEDS: Metoclopramide 10 MG/2 ML VIAL IVP SCH ×2 (18:07→23:08)
[2019-05-24 18:08] LABS: ABG Base Excess -2 mEq/L (-2 to 3); ABG HCO3 28 mEq/L (21-27); ABG Oxygen Saturation 93 % (95-98); ABG PCO2 69 mmHg (35-45); ABG PH 7.21 pH Units (7.32-7.45); ABG PO2 84 mmHg (85-104); ABG TCO2 30 mEq/L (20-26)
[2019-05-24] MEDS: Venlafaxine XR (24 HR) 75 MG CAP.ER.24H PO SCH (18:11)
[2019-05-24] MEDS: Nicotine 14 MG PATCH.TD24 TD SCH (20:06)
[2019-05-25 03:22] LABS: Basophils % 0.1 %; Hematocrit 38.5 % (35.3-44.9); Hemoglobin 12.7 g/dL (11.5-15.4); Immature Granulocytes % 0.3 % (0-4); Lymphocytes % 5.9 %; Mean Corpuscular Hemoglobin 30.9 pg (28.0-33.3); Mean Corpuscular Volume 93.7 fL (83.0-100.0); Mean Platelet Volume 9.4 fL (9.4-12.4); Monocytes # 0.9 K/mcL (0.0-1.3); Monocytes % 5.4 %; Neutrophils # 14.3 K/mcL (1.6-8.9); Platelet Count 141 K/mcL (140-400); Red Blood Count 4.11 M/mcL (3.82-4.97); Red Cell Distribution Width 14.6 % (11.5-14.5); Segmented Neutrophils % 88.3 %; White Blood Count 16.2 K/mcL (4.3-11.1)
[2019-05-25 03:35] LABS: Magnesium 2.2 mg/dL (1.6-2.6)
[2019-05-25] MEDS: *HR* OxyCODONE/APAP 5/325 TABLET PO PRN ×3 (04:03→17:48)
[2019-05-25 04:06] LABS: Prothrombin Time 11.5 Seconds (9.4-12.1)
[2019-05-25 04:07] LABS: ABG Base Excess 1 mEq/L (-2 to 3); ABG HCO3 27 mEq/L (21-27); ABG Oxygen Saturation 90 % (95-98); ABG PCO2 48 mmHg (35-45); ABG PH 7.37 pH Units (7.32-7.45); ABG PO2 61 mmHg (85-104); ABG TCO2 29 mEq/L (20-26); Blood Gas FiO2 1.5 (1-15=lpm or21-100=%)
[2019-05-25 04:08] LABS: Activated Partial Thrombo Time 25.2 Seconds (26.0-36.0)
[2019-05-25] MEDS: Metoclopramide 10 MG/2 ML VIAL IVP SCH ×3 (05:04→23:44)
[2019-05-25 05:20] LABS: BUN/Creatinine Ratio 23 (6-26); Blood Urea Nitrogen 18 mg/dL (8-23); Calcium 8.9 mg/dL (8.6-10.3); Carbon Dioxide 26 mEq/L (23-29); Chloride 105 mEq/L (98-107); Glucose 129 mg/dL (70-105); Osmolality,Calculated 294 (280-300); Potassium 4.5 mEq/L (3.5-5.1); Sodium 140 mEq/L (136-145); eGFR For African Americans > 60 (> 60); eGFR For Non-African Americans > 60 (> 60)
[2019-05-25] MEDS: niCARdipine 20 MG/200 ML MLS IVC SCH (08:37)
[2019-05-25] MEDS: Chlorhexidine Rinse 15 ML MOUTHWASH MM SCH ×2 (08:38→21:16)
[2019-05-25] MEDS: Loratadine 10 MG TABLET PO SCH (08:38)
[2019-05-25] MEDS: Lactobacillus 1 EACH CAP.SPRINK PO SCH ×2 (08:38→21:03)
[2019-05-25] MEDS: Pantoprazole 40 MG VIAL IVP SCH (08:38)
[2019-05-25] MEDS: Venlafaxine XR (24 HR) 150 MG CAP.ER.24H PO SCH (08:39)
[2019-05-25] MEDS: Famotidine 20 MG TABLET PO SCH (08:40)
[2019-05-25] MEDS: diazePAM 5 MG TABLET PO SCH ×3 (08:40→23:48)
[2019-05-25] MEDS: (Ezetimibe [Zetia] 10 MG) PO SCH (08:40)
[2019-05-25] MEDS ORDERED: Furosemide 20 MG/2 ML VIAL IVP SCH (09:00)
[2019-05-25] MEDS ORDERED: Aspirin Enteric Coated 81 MG Tablet PO SCH (09:00)
[2019-05-25] MEDS ORDERED: Naloxone 0.4 MG/ML INJ IVP PRN (12:27)
[2019-05-25] MEDS ORDERED: Insulin Regular, Human 100 UNIT/ML IV PRN (12:27)
[2019-05-25] MEDS ORDERED: Ondansetron 4 MG/2 ML VIAL IVP PRN (12:27)
[2019-05-25] MEDS ORDERED: Dextrose Gel 15 GM/37.5 ML TUBE PO PRN ×2 (12:27)
[2019-05-25] MEDS ORDERED: D5% in Water 1,000 ML IVC PRN (12:27)
[2019-05-25] MEDS ORDERED: *HR* Dextrose 50 % in Water (Syg) 50 ML SYRINGE IVP PRN (12:27)
[2019-05-25] MEDS ORDERED: Insulin Human Regular 100 UNIT in 0.9 % Sodium Chloride 100 ML IVC SCH (12:27)
[2019-05-25] MEDS: *HR* Heparin 5,000 UNIT/ML VIAL SQ SCH ×2 (14:36→17:51)
[2019-05-25] MEDS: Venlafaxine XR (24 HR) 75 MG CAP.ER.24H PO SCH (17:48)
[2019-05-25] MEDS: Insulin LISPRO 300 UNITS/3 ML VIAL SQ SCH ×2 (17:48→20:58)
[2019-05-25] MEDS: Nicotine 14 MG PATCH.TD24 TD SCH (21:04)
[2019-05-25] MEDS: Furosemide 20 MG/2 ML VIAL IVP SCH (21:07)
[2019-05-26 04:28] LABS: Basophils % 0.2 %; Hematocrit 32.9 % (35.3-44.9); Immature Granulocytes % 0.4 % (0-4); Lymphocytes # 1.9 K/mcL (0.6-4.6); Lymphocytes % 15.6 %; Mean Corpuscular HGB Conc 33.7 g/dL (31.6-35.5); Mean Corpuscular Hemoglobin 30.7 pg (28.0-33.3); Mean Corpuscular Volume 91.1 fL (83.0-100.0); Mean Platelet Volume 9.4 fL (9.4-12.4); Monocytes # 0.7 K/mcL (0.0-1.3); Monocytes % 5.7 %; Neutrophils # 9.7 K/mcL (1.6-8.9); Platelet Count 141 K/mcL (140-400); Red Blood Count 3.61 M/mcL (3.82-4.97); Red Cell Distribution Width 15.3 % (11.5-14.5); Segmented Neutrophils % 78.1 %; White Blood Count 12.3 K/mcL (4.3-11.1)
[2019-05-26 04:30] LABS: BUN/Creatinine Ratio 24 (6-26); Blood Urea Nitrogen 18 mg/dL (8-23); Calcium 8.9 mg/dL (8.6-10.3); Carbon Dioxide 30 mEq/L (23-29); Chloride 101 mEq/L (98-107); Glucose 100 mg/dL (70-105); Osmolality,Calculated 286 (280-300); Potassium 3.9 mEq/L (3.5-5.1); Sodium 137 mEq/L (136-145); eGFR For African Americans > 60 (> 60); eGFR For Non-African Americans > 60 (> 60)
[2019-05-26 04:37] LABS: Hemoglobin 11.1 g/dL (11.5-15.4)
[2019-05-26] MEDS: Metoclopramide 10 MG/2 ML VIAL IVP SCH ×3 (05:39→17:22)
[2019-05-26] MEDS: *HR* Heparin 5,000 UNIT/ML VIAL SQ SCH ×2 (05:39→17:22)
[2019-05-26] MEDS: Insulin LISPRO 300 UNITS/3 ML VIAL SQ SCH ×4 (07:55→20:28)
[2019-05-26] MEDS: Aspirin Enteric Coated 81 MG Tablet PO SCH (07:57)
[2019-05-26] MEDS: *HR* OxyCODONE/APAP 5/325 TABLET PO PRN (07:57)
[2019-05-26] MEDS: Venlafaxine XR (24 HR) 150 MG CAP.ER.24H PO SCH (07:58)
[2019-05-26] MEDS: Pantoprazole 40 MG VIAL IVP SCH (07:58)
[2019-05-26] MEDS: Loratadine 10 MG TABLET PO SCH (07:58)
[2019-05-26] MEDS: Chlorhexidine Rinse 15 ML MOUTHWASH MM SCH ×2 (07:58→20:25)
[2019-05-26] MEDS: Lactobacillus 1 EACH CAP.SPRINK PO SCH ×2 (07:58→20:27)
[2019-05-26] MEDS: (Ezetimibe [Zetia] 10 MG) PO SCH (08:52)
[2019-05-26] MEDS: Furosemide 20 MG/2 ML VIAL IVP SCH ×2 (08:52→20:26)
[2019-05-26] MEDS: diazePAM 5 MG TABLET PO SCH ×3 (08:52→20:27)
[2019-05-26] MEDS: Fluticasone Propionate Nasal 50 MCG/SPRAY BOTTLE NS SCH (08:52)
[2019-05-26] MEDS: Venlafaxine XR (24 HR) 75 MG CAP.ER.24H PO SCH (17:22)
[2019-05-26] MEDS: Nicotine 14 MG PATCH.TD24 TD SCH (20:27)
[2019-05-27] MEDS: Metoclopramide 10 MG/2 ML VIAL IVP SCH ×4 (00:29→19:50)
[2019-05-27] MEDS: *HR* Heparin 5,000 UNIT/ML VIAL SQ SCH ×2 (06:20→19:50)
[2019-05-27] MEDS: Insulin LISPRO 300 UNITS/3 ML VIAL SQ SCH ×4 (09:28→20:41)
[2019-05-27] MEDS: diazePAM 5 MG TABLET PO SCH ×3 (09:40→20:41)
[2019-05-27] MEDS: Aspirin Enteric Coated 81 MG Tablet PO SCH (09:40)
[2019-05-27] MEDS: Lactobacillus 1 EACH CAP.SPRINK PO SCH ×2 (09:40→20:40)
[2019-05-27] MEDS: Venlafaxine XR (24 HR) 150 MG CAP.ER.24H PO SCH (09:40)
[2019-05-27] MEDS: Loratadine 10 MG TABLET PO SCH (09:40)
[2019-05-27] MEDS: Furosemide 20 MG/2 ML VIAL IVP SCH (09:41)
[2019-05-27] MEDS: Pantoprazole 40 MG VIAL IVP SCH (09:41)
[2019-05-27] MEDS: *HR* OxyCODONE/APAP 5/325 TABLET PO PRN ×2 (09:41→19:48)
[2019-05-27] MEDS: Chlorhexidine Rinse 15 ML MOUTHWASH MM SCH ×2 (09:41→20:40)
[2019-05-27] MEDS: (Ezetimibe [Zetia] 10 MG) PO SCH (09:41)
[2019-05-27] MEDS: Fluticasone Propionate Nasal 50 MCG/SPRAY BOTTLE NS SCH (12:20)
[2019-05-27] MEDS: Venlafaxine XR (24 HR) 75 MG CAP.ER.24H PO SCH (19:48)
[2019-05-27] MEDS: Nicotine 14 MG PATCH.TD24 TD SCH (20:39)
[2019-05-28 05:05] LABS: Hematocrit 35.4 % (35.3-44.9); Hemoglobin 11.7 g/dL (11.5-15.4); Mean Corpuscular HGB Conc 33.1 g/dL (31.6-35.5); Mean Corpuscular Hemoglobin 31.3 pg (28.0-33.3); Mean Corpuscular Volume 94.7 fL (83.0-100.0); Mean Platelet Volume 9.5 fL (9.4-12.4); Platelet Count 121 K/mcL (140-400); Red Blood Count 3.74 M/mcL (3.82-4.97); Red Cell Distribution Width 14.9 % (11.5-14.5); White Blood Count 6.8 K/mcL (4.3-11.1)
[2019-05-28 05:25] LABS: % Iron Saturation 21 % (15-50); BUN/Creatinine Ratio 27 (6-26); Blood Urea Nitrogen 18 mg/dL (8-23); Calcium 8.8 mg/dL (8.6-10.3); Carbon Dioxide 23 mEq/L (23-29); Chloride 104 mEq/L (98-107); Glucose 99 mg/dL (70-105); Iron 48 mcg/dL (50-170); Magnesium 2.1 mg/dL (1.6-2.6); Osmolality,Calculated 284 (280-300); Potassium 4.1 mEq/L (3.5-5.1); Sodium 136 mEq/L (136-145); Transferrin 167 mg/dL (203-362); eGFR For African Americans > 60 (> 60); eGFR For Non-African Americans > 60 (> 60)
[2019-05-28] MEDS ORDERED: Iron Sucrose Complex 400 MG in 0.9 % Sodium Chloride 250 ML IVPB ONE (08:42)
[2019-05-28] MEDS: Insulin LISPRO 300 UNITS/3 ML VIAL SQ SCH ×4 (09:09→21:02)
[2019-05-28] MEDS: *HR* Heparin 5,000 UNIT/ML VIAL SQ SCH ×2 (09:14→17:32)
[2019-05-28] MEDS: diazePAM 5 MG TABLET PO SCH ×3 (09:20→19:26)
[2019-05-28] MEDS: Aspirin Enteric Coated 81 MG Tablet PO SCH (09:20)
[2019-05-28] MEDS: Loratadine 10 MG TABLET PO SCH (09:20)
[2019-05-28] MEDS: Lactobacillus 1 EACH CAP.SPRINK PO SCH ×2 (09:20→19:25)
[2019-05-28] MEDS: Venlafaxine XR (24 HR) 150 MG CAP.ER.24H PO SCH (09:20)
[2019-05-28] MEDS: (Ezetimibe [Zetia] 10 MG) PO SCH (09:21)
[2019-05-28] MEDS: *HR* OxyCODONE/APAP 5/325 TABLET PO PRN ×3 (09:21→19:24)
[2019-05-28] MEDS: Chlorhexidine Rinse 15 ML MOUTHWASH MM SCH ×2 (09:21→19:25)
[2019-05-28] MEDS: Pantoprazole 40 MG VIAL IVP SCH (09:21)
[2019-05-28] MEDS: Fluticasone Propionate Nasal 50 MCG/SPRAY BOTTLE NS SCH (09:22)
[2019-05-28] MEDS: Venlafaxine XR (24 HR) 75 MG CAP.ER.24H PO SCH (17:32)
[2019-05-28] MEDS: Nicotine 14 MG PATCH.TD24 TD SCH (21:03)
[2019-05-29] MEDS: *HR* Heparin 5,000 UNIT/ML VIAL SQ SCH ×2 (05:45→16:55)
[2019-05-29] MEDS: Loratadine 10 MG TABLET PO SCH (08:21)
[2019-05-29] MEDS: Chlorhexidine Rinse 15 ML MOUTHWASH MM SCH ×2 (08:21→20:29)
[2019-05-29] MEDS: diazePAM 5 MG TABLET PO SCH ×3 (08:21→20:27)
[2019-05-29] MEDS: Venlafaxine XR (24 HR) 150 MG CAP.ER.24H PO SCH (08:21)
[2019-05-29] MEDS: Lactobacillus 1 EACH CAP.SPRINK PO SCH ×2 (08:21→20:28)
[2019-05-29] MEDS: Aspirin Enteric Coated 81 MG Tablet PO SCH (08:21)
[2019-05-29] MEDS: Insulin LISPRO 300 UNITS/3 ML VIAL SQ SCH ×4 (08:22→20:47)
[2019-05-29] MEDS: Fluticasone Propionate Nasal 50 MCG/SPRAY BOTTLE NS SCH (08:22)
[2019-05-29] MEDS: (Ezetimibe [Zetia] 10 MG) PO SCH (08:22)
[2019-05-29] MEDS: *HR* OxyCODONE/APAP 5/325 TABLET PO PRN ×2 (08:34→20:28)
[2019-05-29] MEDS: Acetaminophen 325 MG TABLET PO PRN (13:51)
[2019-05-29] MEDS: Venlafaxine XR (24 HR) 75 MG CAP.ER.24H PO SCH (16:55)
[2019-05-29] MEDS: Nicotine 14 MG PATCH.TD24 TD SCH (20:29)
[2019-05-30] MEDS: *HR* OxyCODONE/APAP 5/325 TABLET PO PRN ×3 (02:45→20:24)
[2019-05-30] MEDS: *HR* Heparin 5,000 UNIT/ML VIAL SQ SCH ×2 (05:49→18:17)
[2019-05-30] MEDS: Insulin LISPRO 300 UNITS/3 ML VIAL SQ SCH (07:39)
[2019-05-30] MEDS: Chlorhexidine Rinse 15 ML MOUTHWASH MM SCH ×2 (08:30→20:25)
[2019-05-30] MEDS: diazePAM 5 MG TABLET PO SCH ×3 (08:30→20:24)
[2019-05-30] MEDS: Aspirin Enteric Coated 81 MG Tablet PO SCH (08:30)
[2019-05-30] MEDS: (Ezetimibe [Zetia] 10 MG) PO SCH (08:30)
[2019-05-30] MEDS: Venlafaxine XR (24 HR) 150 MG CAP.ER.24H PO SCH (08:30)
[2019-05-30] MEDS: Fluticasone Propionate Nasal 50 MCG/SPRAY BOTTLE NS SCH (08:30)
[2019-05-30] MEDS: Loratadine 10 MG TABLET PO SCH (08:30)
[2019-05-30] MEDS: Lactobacillus 1 EACH CAP.SPRINK PO SCH ×2 (08:30→20:24)
[2019-05-30] MEDS: Venlafaxine XR (24 HR) 75 MG CAP.ER.24H PO SCH (18:17)
[2019-05-30] MEDS: Nicotine 14 MG PATCH.TD24 TD SCH (20:25)
[2019-05-31] MEDS: *HR* OxyCODONE/APAP 5/325 TABLET PO PRN ×2 (04:54→13:05)
[2019-05-31] MEDS: *HR* Heparin 5,000 UNIT/ML VIAL SQ SCH ×2 (04:54→16:39)
[2019-05-31] MEDS: Venlafaxine XR (24 HR) 150 MG CAP.ER.24H PO SCH (08:07)
[2019-05-31] MEDS: Lactobacillus 1 EACH CAP.SPRINK PO SCH (08:07)
[2019-05-31] MEDS: Loratadine 10 MG TABLET PO SCH (08:08)
[2019-05-31] MEDS: Fluticasone Propionate Nasal 50 MCG/SPRAY BOTTLE NS SCH (08:08)
[2019-05-31] MEDS: Aspirin Enteric Coated 81 MG Tablet PO SCH (08:08)
[2019-05-31] MEDS: (Ezetimibe [Zetia] 10 MG) PO SCH (08:08)
[2019-05-31] MEDS: diazePAM 5 MG TABLET PO SCH ×2 (08:08→14:35)
[2019-05-31] MEDS: Chlorhexidine Rinse 15 ML MOUTHWASH MM SCH (08:08)
[2019-05-31] MEDS: Venlafaxine XR (24 HR) 75 MG CAP.ER.24H PO SCH (16:40)
[2019-05-31 17:02] VITALS: BP 91/35
[2019-05-31] MEDS: Acetaminophen 325 MG TABLET PO PRN (17:54)
== END 2019-05-31 18:48 | DRG 166 ==
LOC: EMEROOARM 15:48 → 3BNU 15:48 → SUATTDRO 22:21 → 3BNU 22:48 → SUATTDRO 05-21 13:19 → ICNU 05-24 09:27 → 2NENU 05-25 19:50 → 2NNU 05-26 07:49
PROVIDERS: ADMIT Internal Medicine; ATTEND Thoracic Surgery (Cardiothoracic Vascular Surgery)

== ENCOUNTER 2019-06-06 19:14 | Observation (INO) ==
[2019-06-06] MEDS ORDERED: Aspirin 81 MG TAB.CHEW PO ONE (19:37)
[2019-06-06] MEDS ORDERED: *HR* OxyCODONE/APAP 5/325 TABLET PO ONE (19:38)
[2019-06-06 20:48] LABS: Basophils % 0.4 %; Eosinophils % 0.1 %; Hematocrit 34.7 % (35.3-44.9); Hemoglobin 11.7 g/dL (11.5-15.4); Immature Granulocytes % 0.5 % (0-4); Lymphocytes # 1.8 K/mcL (0.6-4.6); Lymphocytes % 22.4 %; Mean Corpuscular HGB Conc 33.7 g/dL (31.6-35.5); Mean Corpuscular Hemoglobin 31.6 pg (28.0-33.3); Mean Corpuscular Volume 93.8 fL (83.0-100.0); Mean Platelet Volume 8.3 fL (9.4-12.4); Monocytes # 0.5 K/mcL (0.0-1.3); Monocytes % 5.8 %; Neutrophils # 5.7 K/mcL (1.6-8.9); Platelet Count 469 K/mcL (140-400); Red Cell Distribution Width 15.3 % (11.5-14.5); Segmented Neutrophils % 70.8 %; White Blood Count 8.1 K/mcL (4.3-11.1)
[2019-06-06 21:04] LABS: BUN/Creatinine Ratio 16 (6-26); Blood Urea Nitrogen 12 mg/dL (8-23); Calcium 9.2 mg/dL (8.6-10.3); Carbon Dioxide 23 mEq/L (23-29); Chloride 108 mEq/L (98-107); Glucose 95 mg/dL (70-105); Osmolality,Calculated 286 (280-300); Potassium 3.4 mEq/L (3.5-5.1); Sodium 138 mEq/L (136-145); Troponin I 0.03 ng/mL (< 0.04); eGFR For African Americans > 60 (> 60); eGFR For Non-African Americans > 60 (> 60)
[2019-06-06 21:27] LABS: INR 1.1; Prothrombin Time 12.5 Seconds (9.4-12.1)
[2019-06-06 21:30] LABS: Activated Partial Thrombo Time 26.4 Seconds (26.0-36.0)
[2019-06-07] MEDS ORDERED: Naloxone 0.4 MG/ML INJ IVP PRN (05:35)
[2019-06-07 05:43] LABS: Hematocrit 33.6 % (35.3-44.9); Hemoglobin 11.1 g/dL (11.5-15.4); Mean Corpuscular Hemoglobin 31.9 pg (28.0-33.3); Mean Corpuscular Volume 96.6 fL (83.0-100.0); Mean Platelet Volume 8.3 fL (9.4-12.4); Platelet Count 448 K/mcL (140-400); Red Blood Count 3.48 M/mcL (3.82-4.97); Red Cell Distribution Width 15.4 % (11.5-14.5); White Blood Count 8.1 K/mcL (4.3-11.1)
[2019-06-07 06:05] LABS: BUN/Creatinine Ratio 16 (6-26); Blood Urea Nitrogen 13 mg/dL (8-23); Calcium 9.2 mg/dL (8.6-10.3); Carbon Dioxide 24 mEq/L (23-29); Chloride 107 mEq/L (98-107); Glucose 127 mg/dL (70-105); Osmolality,Calculated 292 (280-300); Potassium 3.5 mEq/L (3.5-5.1); Sodium 140 mEq/L (136-145); eGFR For African Americans > 60 (> 60); eGFR For Non-African Americans > 60 (> 60)
[2019-06-07] MEDS: Nicotine 14 MG PATCH.TD24 TD SCH (06:25)
[2019-06-07] MEDS ORDERED: (Ezetimibe [Zetia] 10 MG) PO SCH (09:00)
[2019-06-07] MEDS: Venlafaxine XR (24 HR) 150 MG CAP.ER.24H PO SCH (09:56)
[2019-06-07] MEDS: diazePAM 5 MG TABLET PO SCH ×3 (09:56→20:57)
[2019-06-07] MEDS: Aspirin Enteric Coated 81 MG Tablet PO SCH (09:56)
[2019-06-07] MEDS: Loratadine 10 MG TABLET PO SCH (09:56)
[2019-06-07] MEDS: Metoprolol XL (24 HR) Succ 25 MG TAB.ER.24H PO SCH (09:56)
[2019-06-07] MEDS: *HR* OxyCODONE/APAP 5/325 TABLET PO PRN ×3 (10:06→20:56)
[2019-06-07] MEDS: Isosorbide MONOnitrate (24 HR) 30 MG TAB.ER.24H PO SCH (11:55)
[2019-06-07] MEDS ORDERED: Venlafaxine XR (24 HR) 75 MG CAP.ER.24H PO SCH (18:00)
[2019-06-08 02:24] LABS: Basophils % 0.5 %; Eosinophils % 0.3 %; Hematocrit 33.6 % (35.3-44.9); Hemoglobin 10.7 g/dL (11.5-15.4); Immature Granulocytes % 0.3 % (0-4); Lymphocytes # 2.4 K/mcL (0.6-4.6); Lymphocytes % 40.1 %; Mean Corpuscular HGB Conc 31.8 g/dL (31.6-35.5); Mean Corpuscular Volume 97.4 fL (83.0-100.0); Mean Platelet Volume 8.4 fL (9.4-12.4); Monocytes # 0.4 K/mcL (0.0-1.3); Monocytes % 6.8 %; Neutrophils # 3.2 K/mcL (1.6-8.9); Platelet Count 377 K/mcL (140-400); Red Blood Count 3.45 M/mcL (3.82-4.97); Red Cell Distribution Width 15.7 % (11.5-14.5); White Blood Count 6.1 K/mcL (4.3-11.1)
[2019-06-08 02:39] LABS: BUN/Creatinine Ratio 14 (6-26); Blood Urea Nitrogen 11 mg/dL (8-23); Carbon Dioxide 25 mEq/L (23-29); Chloride 110 mEq/L (98-107); Glucose 93 mg/dL (70-105); Osmolality,Calculated 293 (280-300); Potassium 3.8 mEq/L (3.5-5.1); Sodium 142 mEq/L (136-145); eGFR For African Americans > 60 (> 60); eGFR For Non-African Americans > 60 (> 60)
[2019-06-08] MEDS: Nicotine 14 MG PATCH.TD24 TD SCH (05:27)
[2019-06-08] MEDS: *HR* OxyCODONE/APAP 5/325 TABLET PO PRN (05:28)
[2019-06-08 07:59] VITALS: BP 103/76
[2019-06-08] MEDS: Metoprolol XL (24 HR) Succ 25 MG TAB.ER.24H PO SCH (08:01)
[2019-06-08] MEDS: Loratadine 10 MG TABLET PO SCH (08:02)
[2019-06-08] MEDS: Aspirin Enteric Coated 81 MG Tablet PO SCH (08:02)
[2019-06-08] MEDS: diazePAM 5 MG TABLET PO SCH (08:02)
[2019-06-08] MEDS: Isosorbide MONOnitrate (24 HR) 30 MG TAB.ER.24H PO SCH (08:02)
[2019-06-08] MEDS: Venlafaxine XR (24 HR) 150 MG CAP.ER.24H PO SCH (08:02)
== END 2019-06-08 12:50 | disposition home health service (06) ==
LOC: EMEROOARM 19:14 → 2NENU 19:14 → SUATTDRO 22:39 → 2NENU 23:44
PROVIDERS: ADMIT Family Medicine; ATTEND Internal Medicine

== ENCOUNTER 2019-10-01 00:47 | Observation (INO) ==
[2019-10-01] MEDS ORDERED: Aspirin 81 MG TAB.CHEW PO ONE (00:52)
[2019-10-01] MEDS ORDERED: Nitroglycerin 0.4 MG TAB.SUBL SL PRN (00:52)
[2019-10-01 01:10] LABS: Basophils % 0.6 %; Immature Granulocytes % 0.3 % (0-4); Red Cell Distribution Width 13.2 % (11.5-14.5)
[2019-10-01 01:12] LABS: Eosinophils % 0.3 %; Hematocrit 45.3 % (35.3-44.9); Hemoglobin 14.7 g/dL (11.5-15.4); Immature Platelets 1.3 % (1.1-6.1); Lymphocytes # 3.5 K/mcL (0.6-4.6); Lymphocytes % 52.3 %; Mean Corpuscular HGB Conc 32.5 g/dL (31.6-35.5); Mean Corpuscular Hemoglobin 30.8 pg (28.0-33.3); Monocytes # 0.4 K/mcL (0.0-1.3); Neutrophils # 2.7 K/mcL (1.6-8.9); Platelet Count 305 K/mcL (140-400); Red Blood Count 4.77 M/mcL (3.82-4.97); Segmented Neutrophils % 40.5 %; White Blood Count 6.7 K/mcL (4.3-11.1)
[2019-10-01 01:19] LABS: Prothrombin Time 11.6 Seconds (9.4-12.1)
[2019-10-01 01:40] LABS: BUN/Creatinine Ratio 15 (6-26); Blood Urea Nitrogen 16 mg/dL (8-23); Calcium 9.6 mg/dL (8.6-10.3); Carbon Dioxide 22 mEq/L (23-29); Chloride 105 mEq/L (98-107); Glucose 114 mg/dL (70-105); Osmolality,Calculated 284 (280-300); Potassium 3.8 mEq/L (3.5-5.1); Sodium 136 mEq/L (136-145); Troponin I < 0.03 ng/mL (< 0.04); eGFR For African Americans > 60 (> 60); eGFR For Non-African Americans 53 (> 60)
[2019-10-01] MEDS ORDERED: Nicotine 2 MG GUM BC PRN (04:10)
[2019-10-01] MEDS ORDERED: Naloxone 0.4 MG/ML INJ IVP PRN (04:10)
[2019-10-01] MEDS ORDERED: Acetaminophen IV 1,000 MG/100 ML INFUS..BTL IVPB ONE (04:13)
[2019-10-01 06:56] LABS: Magnesium 2.3 mg/dL (1.6-2.6); Phosphorous 3.2 mg/dL (2.7-4.5); Thyroid Stimulating Hormone 4.734 mcIU/mL (0.340-5.600)
[2019-10-01] MEDS: Nicotine 14 MG PATCH.TD24 TD SCH (07:32)
[2019-10-01 08:41] LABS: Estimated Average Glucose 137 mg/dl
[2019-10-01] MEDS: lisinopriL 5 MG TABLET PO SCH (11:30)
[2019-10-01] MEDS: Metoprolol XL (24 HR) Succ 25 MG TAB.ER.24H PO SCH (11:32)
[2019-10-01] MEDS ORDERED: Acetaminophen 325 MG TABLET PO PRN (14:20)
[2019-10-01] MEDS: *HR* OxyCODONE Immed Rel 5 MG TABLET PO PRN (22:47)
[2019-10-02] MEDS: diazePAM 2 MG TABLET PO PRN ×2 (00:40→20:17)
[2019-10-02 01:51] LABS: Calcium 9.2 mg/dL (8.6-10.3); Potassium 3.6 mEq/L (3.5-5.1)
[2019-10-02] MEDS ORDERED: Regadenoson 0.4 MG/5 ML SYRINGE IVP ONE (06:22)
[2019-10-02] MEDS: lisinopriL 5 MG TABLET PO SCH (11:24)
[2019-10-02] MEDS: Metoprolol XL (24 HR) Succ 25 MG TAB.ER.24H PO SCH (11:25)
[2019-10-02] MEDS: Nicotine 14 MG PATCH.TD24 TD SCH (11:25)
[2019-10-02] MEDS: Aspirin Enteric Coated 81 MG Tablet PO SCH (16:13)
[2019-10-02] MEDS: *HR* OxyCODONE Immed Rel 5 MG TABLET PO PRN (23:51)
[2019-10-03 02:33] LABS: Hematocrit 39.1 % (35.3-44.9); Mean Corpuscular HGB Conc 32.2 g/dL (31.6-35.5); Mean Corpuscular Hemoglobin 30.6 pg (28.0-33.3); Mean Corpuscular Volume 94.9 fL (83.0-100.0); Mean Platelet Volume 8.7 fL (9.4-12.4); Platelet Count 213 K/mcL (140-400); Red Blood Count 4.12 M/mcL (3.82-4.97); Red Cell Distribution Width 13.1 % (11.5-14.5); White Blood Count 5.2 K/mcL (4.3-11.1)
[2019-10-03 02:35] LABS: Hemoglobin 12.6 g/dL (11.5-15.4)
[2019-10-03 05:33] LABS: Calcium 9.1 mg/dL (8.6-10.3)
[2019-10-03] MEDS: Nicotine 14 MG PATCH.TD24 TD SCH (08:26)
[2019-10-03] MEDS: Metoprolol XL (24 HR) Succ 25 MG TAB.ER.24H PO SCH (08:27)
[2019-10-03] MEDS: lisinopriL 5 MG TABLET PO SCH (08:27)
[2019-10-03] MEDS: Aspirin Enteric Coated 81 MG Tablet PO SCH (08:27)
[2019-10-03] MEDS: diazePAM 2 MG TABLET PO PRN (08:34)
[2019-10-03] MEDS ORDERED: 0.9 % Sodium Chloride 1,000 ML ONE (11:57)
[2019-10-03] MEDS ORDERED: Nitroglycerin 1,000 MCG/10 ML VIAL IV ONE (11:58)
[2019-10-03] MEDS ORDERED: ISOVUE-370 200 ML INFUS..BTL ONE (11:58)
[2019-10-03] MEDS ORDERED: *HR* Heparin 10,000 UNIT/10 ML VIAL ONE (11:58)
[2019-10-03] MEDS ORDERED: Heparin 1,000 UNITS/500 mL 500 ML ONE (11:58)
[2019-10-03] MEDS ORDERED: *HR* Midazolam HCl 2 MG/2 ML VIAL ONE (12:59)
[2019-10-03] MEDS ORDERED: *HR* FentaNYL (PF) 100 MCG/2 ML VIAL ONE (12:59)
[2019-10-03 15:29] VITALS: BP 144/94
== END 2019-10-03 19:10 | disposition home or self-care (01) ==
LOC: EMEROOARM 00:47 → 3BNU 00:47
PROVIDERS: ADMIT Family Medicine; ATTEND Family Medicine

== ENCOUNTER 2020-11-29 18:44 | Observation (INO) ==
[2020-11-29] MEDS ORDERED: Isovue-370 500 ML BOTTLE IVP ONE (20:15)
[2020-11-29 21:23] LABS: Basophils % 0.5 %; Eosinophils % 0.5 %; Hematocrit 39.1 % (35.3-44.9); Hemoglobin 12.9 g/dL (11.5-15.4); Immature Granulocytes % 0.2 % (0-4); Lymphocytes # 2.6 K/mcL (0.6-4.6); Lymphocytes % 43.8 %; Mean Corpuscular Hemoglobin 31.4 pg (28.0-33.3); Mean Corpuscular Volume 95.1 fL (83.0-100.0); Mean Platelet Volume 8.5 fL (9.4-12.4); Monocytes # 0.4 K/mcL (0.0-1.3); Monocytes % 6.7 %; Neutrophils # 2.9 K/mcL (1.6-8.9); Platelet Count 273 K/mcL (140-400); Red Blood Count 4.11 M/mcL (3.82-4.97); Red Cell Distribution Width 12.9 % (11.5-14.5); Segmented Neutrophils % 48.3 %; White Blood Count 5.9 K/mcL (4.3-11.1)
[2020-11-29] MEDS ORDERED: Prochlorperazine 10 MG/2 ML VIAL IVP STA (21:44)
[2020-11-29] MEDS ORDERED: 0.9 % Sodium Chloride 1,000 ML IVC ONE (21:45)
[2020-11-29 21:46] LABS: Alanine Aminotransferase 8 Units/L (7-52); Albumin 4.2 g/dL (3.5-5.7); Albumin/Globulin Ratio 1.5 (1.1-2.2); Alkaline Phosphatase 64 Units/L (34-104); Aspartate Amino Transferase 12 Units/L (13-39); BUN/Creatinine Ratio 11 (6-26); Bilirubin,Direct 0.1 mg/dL (0.0-0.2); Bilirubin,Indirect 0.3 mg/dL (0.0-1.0); Bilirubin,Total 0.4 mg/dL (0.3-1.0); Blood Urea Nitrogen 10 mg/dL (8-23); Calcium 9.5 mg/dL (8.6-10.3); Carbon Dioxide 22 mEq/L (23-29); Chloride 106 mEq/L (98-107); Globulin 2.8 g/dL (2.4-3.5); Glucose 91 mg/dL (70-105); Lipase 12 Units/L (11-82); Osmolality,Calculated 281 (280-300); Potassium 3.9 mEq/L (3.5-5.1); Sodium 136 mEq/L (136-145); Troponin I < 0.03 ng/mL (< 0.04); eGFR For African Americans > 60 (> 60); eGFR For Non-African Americans > 60 (> 60)
[2020-11-29 22:17] LABS: Bilirubin,Urine Negative (Negative); Blood,Urine Negative (Negative); Clarity,Urine Clear (Clear); Color,Urine Colorless (Yellow); Glucose,Urine (UA) Normal (Normal); Ketones,Urine Negative (Negative); Leukocyte Esterase,Urine Negative (Negative); Nitrite,Urine Negative (Negative); PH,Urine 6.5 pH Units (5.0-8.0); Protein,Urine Negative (Neg-Trace); Specific Gravity,Urine 1.008 (1.010-1.025); Urobilinogen,Urine Normal (Normal)
[2020-11-30] MEDS ORDERED: Aspirin 81 MG TAB.CHEW PO STA (00:43)
[2020-11-30] MEDS ORDERED: Naloxone 0.4 MG/ML INJ IVP PRN (01:36)
[2020-11-30] MEDS ORDERED: Ondansetron 4 MG/2 ML VIAL IVP PRN (01:36)
[2020-11-30] MEDS ORDERED: Acetaminophen 325 MG TABLET PO PRN (01:36)
[2020-11-30 06:15] LABS: Basophils % 0.7 %; Eosinophils # 0.1 K/mcL (0.0-0.6); Eosinophils % 1.1 %; Hematocrit 38.6 % (35.3-44.9); Hemoglobin 12.5 g/dL (11.5-15.4); Immature Granulocytes % 0.2 % (0-4); Mean Corpuscular HGB Conc 32.4 g/dL (31.6-35.5); Mean Corpuscular Hemoglobin 31.1 pg (28.0-33.3); Mean Platelet Volume 8.6 fL (9.4-12.4); Monocytes # 0.4 K/mcL (0.0-1.3); Monocytes % 7.8 %; Neutrophils # 1.9 K/mcL (1.6-8.9); Platelet Count 237 K/mcL (140-400); Red Blood Count 4.02 M/mcL (3.82-4.97); Red Cell Distribution Width 12.9 % (11.5-14.5); Segmented Neutrophils % 35.2 %; White Blood Count 5.5 K/mcL (4.3-11.1)
[2020-11-30 06:21] LABS: INR 1.1; Prothrombin Time 12.4 Seconds (9.4-12.1)
[2020-11-30 06:36] LABS: Chol/HDL Ratio 3.4 (0-4.9); Cholesterol 131 mg/dL (< 200); HDL Cholesterol 39 mg/dL (40-59); LDL Cholesterol,Calculated 70 mg/dL (< 100); Triglycerides 108 mg/dL (< 150)
[2020-11-30 06:59] LABS: BUN/Creatinine Ratio 9 (6-26); Blood Urea Nitrogen 9 mg/dL (8-23); Calcium 9.5 mg/dL (8.6-10.3); Carbon Dioxide 20 mEq/L (23-29); Chloride 110 mEq/L (98-107); Glucose 98 mg/dL (70-105); Osmolality,Calculated 285 (280-300); Potassium 3.8 mEq/L (3.5-5.1); Sodium 138 mEq/L (136-145); eGFR For African Americans > 60 (> 60); eGFR For Non-African Americans 58 (> 60)
[2020-11-30] MEDS ORDERED: *HR* OxyCODONE/APAP 5/325 TABLET PO PRN (07:21)
[2020-11-30] MEDS ORDERED: Famotidine 20 MG TABLET PO SCH ×2 (07:45→16:30)
[2020-11-30] MEDS: Lactobacillus 1 EACH CAP.SPRINK PO SCH ×2 (08:02→15:32)
[2020-11-30 08:46] LABS: Amphetamine Screen,Urine Negative ng/mL (Cutoff=1000); Barbiturate Screen,Urine Negative ng/mL (Cutoff=200); Benzodiazepines Screen,Urine Positive ng/mL (Cutoff=200); Cannabinoid Screen,Urine Negative ng/mL (Cutoff = 50); Cocaine Screen,Urine Negative ng/mL (Cutoff= 300); Opiate Screen,Urine Negative ng/mL (Cutoff=300); Phencyclidine Screen,Urine Negative ng/mL (Cutoff=25)
[2020-11-30] MEDS ORDERED: Isosorbide MONOnitrate (24 HR) 30 MG TAB.ER.24H PO SCH (09:00)
[2020-11-30] MEDS ORDERED: lisinopriL 10 MG TABLET PO SCH (09:00)
[2020-11-30] MEDS ORDERED: Fluticasone Propionate Nasal 50 MCG/SPRAY BOTTLE NS SCH (09:00)
[2020-11-30] MEDS ORDERED: Folic Acid 1 MG TABLET PO SCH (09:00)
[2020-11-30] MEDS ORDERED: Venlafaxine XR (24 HR) 150 MG CAP.ER.24H PO SCH (09:00)
[2020-11-30] MEDS ORDERED: Aspirin Enteric Coated 81 MG Tablet PO SCH (09:00)
[2020-11-30] MEDS ORDERED: Metoprolol XL (24 HR) Succ 25 MG TAB.ER.24H PO SCH (09:00)
[2020-11-30 12:42] VITALS: BP 118/71
[2020-11-30] MEDS ORDERED: Venlafaxine XR (24 HR) 75 MG CAP.ER.24H PO SCH (18:00)
[2020-12-01] MEDS ORDERED: Loratadine 10 MG TABLET PO SCH (09:00)
== END 2020-11-30 19:01 | disposition home or self-care (01) ==
LOC: EMEROOARM 18:44 → 3ANU 18:44
PROVIDERS: ADMIT Student in an Organized Health Care Education/Training Program; ATTEND Student in an Organized Health Care Education/Training Program